=== PATIENT | male | born 1940 | race Caucasian/White ===

== ENCOUNTER 2023-07-19 12:18 | Inpatient (IN) | payer OTHER, SELFPAY ==
[2023-07-19] VITALS (17 sets, daily range): BP systolic 98–128; BP diastolic 52–91; PULSE 2–63; BMI 30.1
--- NOTE | 2023-07-19 08:21 | ED.GENMED ---
History of Present Illness
General
Chief Complaint: Breathing Problem
Source: patient
Exam Limitations: none
Time Seen by Provider: 07/19/23 08:12
Travel History
Have you had any contact with someone who has COVID-19?: No
Do you have any symptoms of coronavirus? Fever > 100 degrees, chills, cough, shortness of breath, sore throat, loss of taste or smell, muscle aches, or headache?: No
History of Present Illness
History of Present Illness:
83-year-old male with history of CHF, pacer on Eliquis and history of COPD presents with progressively worsening shortness of breath over the past week. 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 He is on Atrovent at home. He denies
significant leg swelling. No missed doses of Eliquis. No significant chest pain. Breathing seems to be worse laying down. He notes a cough as well but no fever
Past History
Past History
ED Past Medical History: Arrthythmia (Paroxysmal Atrial fibrillation), CHF, CVA, HTN, Hypercholesterolemia and Other (Kidney stones)
ED Past Surgical History: Cardiac (Cardiac Ablation X 2, Cardioversion), Tonsilectomy and Urological
Social History
Tobacco: Former smoker (quit )
Alcohol: None
Drug: None
Personal:
Living: with family
Phy Exam
Physical Exam
Physical Exam:
General: Well-developed male with increased work of breathing
HEENT: Normocephalic atraumatic neck is supple
Heart: Regular rate and rhythm no audible murmurs
Lungs: Slightly diminished with expiratory wheeze.
Extremities: No cyanosis or edema
Skin: Warm no rash or lesions
Scores
Heart Failure Risk
Heart Failure Risk Score: Not Applicable
Course
Orders/Labs/Results
Orders:
Orders
07/19/23 08:00
Electrocardiogram (*1) Urgent
Reason for Study: Shortness of Breath
EKG- Treatment ONCE
07/19/23 08:18
CR Chest Portable - 1 View Urgent
Comment:
Reason For Exam: sob
Reason Study Needs to be Portable: Patient Unstable
07/19/23 08:20
Ipratropium/Albuterol Sulfate [Duoneb] 3 ml .ROUTE .STK-MED ONE
Ipratropium/Albuterol Sulfate [Duoneb] 3 ml INH R NOW ONE
07/19/23 08:34
Complete Blood Count/With Diff Urgent
Comprehensive Metabolic Panel Urgent
NT-proBNP Urgent
Troponin I Urgent
07/19/23 08:46
COVID-19 Antigen Urgent
Source: Nasal Swab
Influenza A+B Rapid Molecular Urgent
MICHELET Source: Nasal Swab
Specimen Description:
07/19/23 11:13
CefTRIAXone [Rocephin] 1,000 mg IV NOW STA
07/19/23 12:00
Azithromycin 500 mg/250 ml [Zithromax Infusion] 500 mg in 250 ml IV Q24H
Abnormal Lab Results
07/19/23
08:34
RBC 3.09 L 10^6/uL
(4.70-6.10)
Hgb 10.0 L g/dL
(13.0-18.0)
Hct 30.5 L %
(39.0-52.0)
MCV 98.7 H fL
(80.0-94.0)
MCH 32.4 H pg
(27.0-31.0)
MCHC 32.8 L g/dL
(33.0-37.0)
Abs Immat Gran (auto) 0.1 H 10^3/uL
(0-0.05)
Absolute Neuts (auto) 7.4 H 10^3/uL
(1.4-6.5)
Absolute Lymphs (auto) 0.4 L 10^3/uL
(1.2-3.4)
Absolute Monos (auto) 1.3 H 10^3/uL
(0.1-0.6)
Neutrophils % 80.5 H %
(42.2-75.2)
Lymphocytes % 4.7 L %
(20.5-51.1)
Monocytes % 14.1 H %
(1.7-9.3)
BUN 29 H mg/dl
(9-20)
Creatinine 1.8 H mg/dL
(0.7-1.3)
Glucose 137 H mg/dl
(70-99)
Calcium 8.1 L mg/dl
(8.4-10.2)
AST 67 H U/L
(17-59)
Total Protein 5.5 L g/dl
(6.3-8.2)
Albumin 3.1 L g/dl
(3.5-5.0)
07/19/23 08:34
07/19/23 08:34
Vital Signs
Initial and Last Documented VS:
Initial Vital Signs
Temp Pulse Resp BP Pulse Ox
99.5 F 72 20 101/57 95
07/19/23 07:56 07/19/23 07:56 07/19/23 07:56 07/19/23 07:56 07/19/23 07:56
Last Documented Vital Signs
Temp Pulse Resp BP Pulse Ox
99.5 F 64 29 103/55 99
07/19/23 07:56 07/19/23 08:30 07/19/23 08:30 07/19/23 08:19 07/19/23 09:54
MDM/Problems Addressed
Differential Diagnosis Includes:
Increased respiratory effort. Consider acute on chronic COPD versus pneumonia versus heart failure. Unlikely to be PE in the setting of consistent Eliquis use. Portable chest x-ray DuoNeb ordered will be started on oxygen. May consider BiPAP if
no improvement
*Critical Care Note
Total Time (30-74mins, 75-104mins- exclusive of procedures): Not Applicable
Update Note
Update Note:
Patient reexamined multiple times still with increased respiratory effort after nebulizer. Respiratory therapy consulted for BiPAP initiation. Chest x-ray reviewed and demonstrates pneumonitis versus atypical edema. BNP is 4060.
ED Attending Note
-
Portions of this chart may have been created with voice recognition software.� Occasional wrong word or��sound alike� substitutions may have occurred due to the inherent limitations of voice recognition software.
Discharge Plan
Departure
Patient Disposition: Admit
Date of Disposition: 07/19/23
Time of Disposition: 11:20
Admit to: Telemetry
Presentation/result/management discussed w/ accepting MD/DO: Hospitalist
Discharge Problem:
COPD exacerbation
Prescriptions:
No Action
lorazepam 0.5 MG tablet
0.5 mg PO Q6HPRN PRN (Reason: anxiety, sleep)
ascorbic acid (vitamin C) [Vitamin C] 500 MG tablet
500 mg PO DAILY Qty: 0
Eliquis 5 MG tablet
5 mg PO BID
cholecalciferol (vitamin D3) 1,000 UNITS tablet
1,000 units PO DAILY
terazosin 5 MG capsule
5 mg PO HS
simvastatin 20 MG tablet
20 mg PO QPM
Patient Comments:
02/14/22---cannot take atorvastin
albuterol sulfate 1 PUFF HFA aerosol inhaler
2 puff inhalation R Q4HPRN PRN (Reason: sob)
Refresh Optive Advanced (PF) 0.5-1-0.5 % Dropperette
1 drp BOTH EYES QID Qty: 0
Rocklatan 2.5 ML drops
1 drp BOTH EYES HS
guaifenesin [Mucus Relief ER] 600 mg Tablet Extended Release 12hr
600 mg PO Q12 Qty: 1 0RF
Centrum Silver Men 300-600-300 mcg Tablet
1 tab PO DAILY
psyllium Packet
17 packet PO DAILY
[place] Saline 0.65 % Aerosol,[place]
2 spray INTRANASAL Q4H PRN (Reason: nasal dryness)
acetaminophen [Tylenol] 325 mg Tablet
325 mg PO Q4H PRN (Reason: mild pain)
Simbrinza 1-0.2 % Drops,Suspension
1 drp BOTH EYES BID
furosemide 40 mg tablet
40 mg PO DAILY
metoprolol succinate 50 mg Tablet Extended Release 24 Hr
75 mg PO BID Qty: 60 0RF
Referrals:
Kaitlynn Michelle CRNP [Family Provider] -
Interventions
Interventions:
*Risk Screen - Suicide Last Done: 07/19/23 08:23
*General Assessment Last Done: 07/19/23 08:43
*Neglect/Abuse Screening Last Done: 07/19/23 08:23
ED- Fall Risk Assessment Last Done: 07/19/23 08:23
*ED COVID-19 Vaccine History Last Done: 07/19/23 07:56
ED- Cardiac Assessment Last Done: 07/19/23 08:23
ED- Pulmonary Assessment Last Done: 07/19/23 08:23
[2023-07-19] MEDS: DUONEB 3 ML INH ×3 (08:26→20:00)
[2023-07-19 08:46] LABS: % Basophils 0.1 % (0-2); % Eosinophils 0.1 % (0-6); % Immature Granulocytes 0.5 % (0-0.5); % Lymphocytes 4.7 % (20.5-51.1); % Monocytes 14.1 % (1.7-9.3); % Neutrophils 80.5 % (42.2-75.2); Absolute Immature Granulocytes 0.1 10^3/uL (0-0.05); Absolute Lymphocytes 0.4 10^3/uL (1.2-3.4); Absolute Monocytes 1.3 10^3/uL (0.1-0.6); Absolute Neutrophils 7.4 10^3/uL (1.4-6.5); Hematocrit 30.5 % (39.0-52.0); Mean Corp Hgb Conc. 32.8 g/dL (33.0-37.0); Mean Corpuscular Hgb 32.4 pg (27.0-31.0); Mean Corpuscular Volume 98.7 fL (80.0-94.0); Nucleated Red Blood Cells % 0 % (-); Platelet Count 180 10^3/uL (130-400); Red Blood Cell Count 3.09 10^6/uL (4.70-6.10); Red Cell Dist. Width 12.7 % (11.5-14.5); White Blood Cell Count 9.2 10^3/uL (4.8-10.8)
[2023-07-19 09:04] LABS: ALT (SGPT) 47 U/L (0-50); AST (SGOT) 67 U/L (17-59); Albumin 3.1 g/dl (3.5-5.0); Alkaline Phosphatase 114 U/L (38-126); Blood Urea Nitrogen 29 mg/dl (9-20); Calcium 8.1 mg/dl (8.4-10.2); Carbon Dioxide 27 mmol/L (22-30); Chloride 103 mmol/L (98-107); Estimated Creatinine Clearance 40 ml/min; Glucose 137 mg/dl (70-99); Potassium 3.7 mmol/L (3.5-5.1); Sodium 136 mmol/L (135-145); Total Bilirubin 1.1 mg/dl (0.2-1.3); Total Protein 5.5 g/dl (6.3-8.2); eGFR 37.35
[2023-07-19 09:08] LABS: NT-proBNP 4060 pg/ml; Troponin I 0.014 ng/ml
[2023-07-19 09:14] LABS: COVID-19 Antigen Negative (Negative)
--- NOTE | 2023-07-19 11:40 | HPS.HSE ---
Family Physician
-
Family Physician: JUDY Echeverria
Chief Complaint
-
cough, SONG
History of Present Illness
HPI: 83-year-old male with history of CHF, pacer, A fib on Eliquis, COPD presented with progressively worsening shortness of breath over the past week.�SOB worse with exertion. This is associated with productive cough.
He denies to significant leg swelling, CP, abd pain etc.
Medical History
Past Medical History
Past Medical History: Reports Arrhythmia (Paroxysmal A. 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
insomnia)
Past Surgical History: Reports Cardiac (Multiple cardiac ablations paroxysmal A. fib, cardioversion) and Tonsilectomy
Social History
Tobacco: Former Smoker (Quit 2018 smoking a pipe)
Alcohol: Former (Quit 8 years ago)
Drug: None
Personal: Single
Living: With Family ( Laura)
Family History
Family History: Not pertinent
Allergies / Home Medications
Allergies reflects when Allergies were last updated in [facility].
Home Medications with original date entered in [facility]
Allergy/Medication List:
Allergies
Allergy/AdvReac Type Severity Reaction Status Date / Time
amiodarone Allergy Severe Shortness Verified 04/04/22 07:45
of Breath
codeine Allergy Severe nausea/vomi Verified 03/04/22 09:13
ting
fluvastatin Allergy Severe dizzy/SOB Verified 03/04/22 09:13
atorvastatin Allergy dizzy/SOB Verified 03/04/22 09:13
Home Medications
lorazepam 0.5 mg tablet 0.5 mg PO Q6HPRN PRN anxiety, sleep 11/28/14
ascorbic acid (vitamin C) 500 mg tablet (Vitamin C) 500 mg PO DAILY Supplement ##0 06/30/20
apixaban 5 mg tablet (Eliquis) 5 mg PO BID Blood clot prevention/tx 01/23/21
cholecalciferol (vitamin D3) 25 mcg (1,000 unit) tablet 1,000 units PO DAILY Supplement 02/28/21
albuterol sulfate 90 mcg/actuation aerosol inhaler 2 puff inhalation R Q4HPRN PRN sob 05/02/21
simvastatin 20 mg tablet 20 mg PO QPM High cholesterol 05/02/21
carboxymethyl 0.5 %-glycerin 1 %-polysorb 80 0.5 %-PF eye dropperette (Refresh Optive Advanced (PF)) 1 drp BOTH EYES 5/D Eye condition ##0 10/22/21
rcomqaeu-fp-eoxmo 300 mcg-K 60 mcg-lycop 600 mcg-lutein 300 mcg tablet (Centrum Silver Men) 1 tab PO DAILY Supplement 02/03/22
brinzolamide 1 %-brimonidine 0.2 % eye drops,suspension (Simbrinza) 1 drp RIGHT EYE BID Eye condition 02/14/22
furosemide 40 mg tablet 40 mg PO DAILY Fluid retention/Swelling 02/14/22
amlodipine 10 mg tablet (Norvasc) 10 mg PO DAILY 07/19/23
guaifenesin 600 mg tablet, extended release 12 hr (Mucus Relief ER) 600 mg PO DAILY 07/19/23
lisinopril 30 mg tablet 30 mg PO DAILY 07/19/23
methazolamide 50 mg tablet 50 mg PO BID 07/19/23
metoprolol succinate 50 mg tablet,extended release 24 hr 50 mg PO BID 07/19/23
netarsudil 0.02 % eye drops (Rhopressa) 1 drp BOTH EYES QPM 07/19/23
Review of Systems
-
Respiratory: Reports See HPI, Cough and Trouble Breathing
Physical Exam
Vital Signs
Vital Signs
Temp Pulse Resp BP Pulse Ox
37.5 C 64 29 103/55 99
07/19/23 07:56 07/19/23 08:30 07/19/23 08:30 07/19/23 08:19 07/19/23 09:54
Physical Exam
General: Well Developed, Well Nourished and Conversant
HEENT: NormoCephalic, Moist mucous membranes, Atraumatic and Oxygen (BIPAP)
Respiratory: Clear and Accessory Resp Muscle Use; No Wheezes
Cardiac: S1/S2 and Regular Rhythm; No Murmur or Rub
GI: Soft, Non Tender, Non Distended and Normal Bowel Sounds; No Organomegaly
Rectal: Deferred by Provider
Musculoskeletal: No Clubbing, No Cyanosis and No Edema
Skin: No Rash
Neuro: Awake
Psych: Calm and Intact Judgment/Insight
Laboratory Results
-
07/19/23 08:34
07/19/23 08:34
Laboratory Results
Total Bilirubin 1.1 mg/dl (0.2-1.3) 07/19/23 08:34
AST 67 U/L (17-59) H 07/19/23 08:34
ALT 47 U/L (0-50) 07/19/23 08:34
Alkaline Phosphatase 114 U/L (38-126) 07/19/23 08:34
Troponin I 0.014 ng/ml 07/19/23 08:34
Data Reviewed
-
Diagnostic Radiology: Image Personally Visualized and interpreted and Report Reviewed by me
Lab Data: Labs Reviewed by me
Impression/Plan
-
HPI: 83-year-old male with history of CHF, pacer, A fib on Eliquis, COPD presented with progressively worsening shortness of breath over the past week.�SOB worse with exertion. This is associated with productive cough.
He denies to significant leg swelling, CP, abd pain etc.
CXR:
Some mild widespread bilateral interstitial opacities as well as possible small superimposed patchy right upper lobe alveolar opacity. Some differential diagnostic possibilities include pneumonitis or atypical edema.
A/P:
# SOB/SONG and productive cough, ddx include acute CHF vs CAP, see below
# Acute hypoxic resp failure
Placed on BIPAP, cont and wean as tolerated
IV PPI for gastric protection
Would not resume [employer] Ativan while on BIPAP
Admit to IMU for acute hypoxic resp failure on BIPAP
# Acute on chronic diastolic heart failure
BNP 4060
CXR report as above
weight 112 kg from baseline 106, monitor daily weight
cont Lasix, use 40 mg IV during hospital stay
Check updated echo
Card CS
# CRISTELA, possible cardiorenal syndrome
SCr 1.8 from baseline 1.3
Monitor SCr with IV lasix
# Possible CAP
COVID/Flu are negative
s/p ceftriaxone/azithromycin in ED, cont ceftriaxone/azithromycin
check MRSA screen, sputum Cx
cont DuoNeb
# Paroxysmal atrial fibrillation and atrial flutter s/p pulmonary vein isolation ablation x2 in 2018, Maze 01/2021.
# Status post biventricular permanent pacemaker 03/04/2022.
Cont [employer] Eliquis
# Hypertension.
cont [employer] Toprol
Hold Lisinopril, Norvasc
# Hyperlipidemia.
# Gastroesophageal reflux disease.
IV PPI
DVT ppx: [employer] Eliquis
FC
[2023-07-19] MEDS: ZITHROMAX INFUSION 250 IV (12:06)
[2023-07-19] MEDS: ROCEPHIN 1000 MG IV (12:08)
[2023-07-19] MEDS: STERILE WATER FOR INJECTION 10 ML IV (12:08)
--- NOTE | 2023-07-19 14:09 | CON.PUL ---
Consultation
Consultation Request
Date/Time Consultation Requested: 07/19/2023-2:30 PM
Date/Time Consultation Performed: 07/19/2023-2:30 PM
Requesting Provider: Hospitalist
Performing Provider: Dr. Sandoval
Reason for Consultation: COPD
Medical History
-
Chief Complaint: Shortness of breath
History of Present Illness:
83-year-old male with a history of underlying COPD, CAD, CHF, atrial fibrillation on Eliquis presented with increasing shortness of breath and pulmonary consulted for shortness of breath 07/19/2023. He was just seen in the pulmonary office where he
was stable. He developed increasing shortness of breath, increasing wheezing, chest congestion with thick yellow/green sputum production. He denies any current chest pain, pleurisy, abdominal pain, nausea, vomiting, leg swelling or weakness.
Past Medical History
Past Medical History: None (Hypertension. PAF/multiple ablations/cardioversions. CHF. GERD. Chronic kidney disease stage IIIb. Anxiety. 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 Renal calculi. Former smoker quit 2019. COPD. Tonsillectomy.)
Social History
Tobacco: Former Smoker (Quit 2019 smoking a pipe)
Alcohol: Former (Quit 8 years ago)
Drug: None
Personal:
Living: With Family
Occupational Exposures: No known asbestos exposure
Environmental Exposures: No known tuberculosis exposure
Family History
Family History: Reviewed & Not Pertinent and Other (Father-TIA. Mother-aortic stenosis)
Allergies / Home Medications
Allergies
Allergy/AdvReac Type Severity Reaction Status Date / Time
amiodarone Allergy Severe Shortness Verified 04/04/22 07:45
of Breath
codeine Allergy Severe nausea/vomi Verified 03/04/22 09:13
ting
fluvastatin Allergy Severe dizzy/SOB Verified 03/04/22 09:13
atorvastatin Allergy dizzy/SOB Verified 03/04/22 09:13
Home Medications
Medication Instructions Recorded Confirmed Last Taken Type
lorazepam 0.5 mg tablet 0.5 mg PO Q6HPRN PRN anxiety, sleep 11/28/14 07/19/23 04/03/22 19:30 History
ascorbic acid (vitamin C) 500 mg 500 mg PO DAILY Supplement ##0 06/30/20 07/19/23 07/19/23 History
tablet (Vitamin C)
apixaban 5 mg tablet (Eliquis) 5 mg PO BID Blood clot 01/23/21 07/19/23 07/19/23 History
prevention/tx
cholecalciferol (vitamin D3) 25 1,000 units PO DAILY Supplement 02/28/21 07/19/23 07/19/23 History
mcg (1,000 unit) tablet
albuterol sulfate 90 mcg/actuation 2 puff inhalation R Q4HPRN PRN sob 05/02/21 07/19/23 04/03/22 12:00 History
aerosol inhaler
simvastatin 20 mg tablet 20 mg PO QPM High cholesterol 05/02/21 07/19/23 07/18/23 History
carboxymethyl 0.5 %-glycerin 1 1 drp BOTH EYES 5/D Eye condition 10/22/21 07/19/23 07/19/23 History
%-polysorb 80 0.5 %-PF eye ##0
dropperette (Refresh Optive
Advanced (PF))
hjwtutoj-zu-cxdzn 300 mcg-K 60 1 tab PO DAILY Supplement 02/03/22 07/19/23 07/19/23 History
mcg-lycop 600 mcg-lutein 300 mcg
tablet (Centrum Silver Men)
brinzolamide 1 %-brimonidine 0.2 % 1 drp RIGHT EYE BID Eye condition 02/14/22 07/19/23 07/19/23 History
eye drops,suspension (Simbrinza)
furosemide 40 mg tablet 40 mg PO DAILY Fluid 02/14/22 07/19/23 07/19/23 History
retention/Swelling
amlodipine 10 mg tablet (Norvasc) 10 mg PO DAILY Blood Pressure 07/19/23 07/19/23 07/19/23 History
guaifenesin 600 mg tablet, 600 mg PO DAILY Congestion 07/19/23 07/19/23 07/19/23 History
extended release 12 hr (Mucus
Relief ER)
lisinopril 30 mg tablet 30 mg PO DAILY Blood Pressure 07/19/23 07/19/23 07/19/23 History
methazolamide 50 mg tablet 50 mg PO BID Eye Condition 07/19/23 07/19/23 07/19/23 History
metoprolol succinate 50 mg 50 mg PO BID Blood Pressure 07/19/23 07/19/23 07/19/23 History
tablet,extended release 24 hr
netarsudil 0.02 % eye drops 1 drp BOTH EYES QPM Eye Condition 07/19/23 07/19/23 07/18/23 History
(Rhopressa)
Review of Systems
-
Unable to Obtain full review of systems at this time due to: Other (Per HPI)
Vitals / Labs / Diagnostic Testing
Vital Signs
Temp Pulse Resp BP Pulse Ox
99.5 F 74 32 119/68 95
07/19/23 07:56 07/19/23 12:45 07/19/23 12:45 07/19/23 12:00 07/19/23 12:30
Lab Data
07/19/23 08:34
07/19/23 08:34
Microbiology
07/19/23 08:46 Nasal Swab Influenza Types A & B (XIMENA) - Final
Negative for Influenza A & B, NAAT
Negative results must be combined with clinical observations
and patient history.
Nucleic Acid Amplification test (NAAT)performed on the
[employer] platform.
Diagnostic Testing:
Physical Exam
-
Exam:
Well-nourished and well-developed in no apparent distress
HEENT-atraumatic, normocephalic
Neck-supple, no JVD, no bruit
Heart-regular rate and rhythm-no murmurs, rubs or gallops
Chest with diminished breath sounds, prolonged expiratory time, expiratory wheezes, rhonchi and rare crackles at the bases
Abdomen-soft, nontender, nondistended, no hepatosplenomegaly
Extremities-no cyanosis, clubbing, lower extremity edema
Integument-intact, no rashes, lesions or ecchymosis
Neurology-alert and oriented, nonfocal motor and sensory exam
Assessment
-
83-year-old male with a history of underlying COPD, CAD, CHF, atrial fibrillation on Eliquis presented with increasing shortness of breath and pulmonary consulted for shortness of breath 07/19/2023.
Assessment
Shortness of breath
Bilateral interstitial opacifications
Acute on top of chronic diastolic CHF-BNP 4060
COPD with acute exacerbation-significant wheezing on exam
CRISTELA
PAF status post ablation, maze
[id number] 10.0
Hyperglycemia-blood sugar 137
Hypoalbuminemia
Conditions present prior to admission:
Hypertension.
PAF/multiple ablations-2017, MAZE 2020/cardioversions.
Chronic anticoagulation
CHF.
GERD.
Chronic kidney disease stage IIIb.
Anxiety.
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 June
Renal calculi.
Former smoker quit 2018.
COPD.
Tonsillectomy. Hemorrhoidectomy. Biventricular pacemaker implant. AV pepe ablation 03/2022. Laser lithotripsy and stenting 10/2021. Cataract extraction.
Plan
Patient admitted to IMU with impending respiratory failure
Supplemental oxygen as needed
BiPAP
Noninvasive ventilation if needed
Intubated mechanically ventilated if needed
Nebulizers as needed
Add Decadron
Add mucolytic's
Mucus clearing devices
Aspiration precautions
Incentive spirometry
Diuresis as tolerated
Monitor renal function, electrolytes, intake/output, lower extremity edema and weight
Replace electrolytes as needed
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
Cardiology evaluation
Check cultures
Check sputum culture
Empiric antibiotics
Follow radiographically
Consider CT chest
Monitor renal function
Consider nephrology evaluation if renal function worsens
DVT prophylaxis
Nutrition
Early mobilization
Dr. Sandoval reviewed with at the bedside
Patient was last seen by Dr. June 07/09/2023-interstitial lung disease
Diagnostic data:
Chest x-ray 03/04/2022-no pneumothorax, no acute mediastinal abnormalities, mild stable pleural-parenchymal scarring, lungs otherwise clear
Chest x-ray 07/19/2023-some widespread bilateral interstitial opacifications as well as possible small superimposed patchy right upper lobe airspace disease
Echocardiogram 05/25/2021-EF 50%, stage II diastolic dysfunction, PA systolic 30-35
Echocardiogram 02/13/2023-EF 50-55%, moderately dilated left atrium, no valvular disease, no change from 2021
CT chest 05/24/2021-increased interstitial markings with groundglass opacifications
CT chest 08/17/2021-resolution of bilateral interstitial infiltrates, stable lung nodules for several years
PFT 11/22/2022-FEV1 2.8-78%, FVC 6.8-82%, TLC 82%, RV 75%, DLCO 44%, DLCO/VA 50%
PFT 07/09/2023-FEV1 2.6-72%, FVC 4-82%, TLC 91%, RV 89%, DLCO 46%, DLCO/VA 64%
Immunoglobulin levels 05/25/2021-normal with exception of mildly decreased IgG-607
Data Reviewed
-
PFT: Report reviewed by me
EKG: Report reviewed by me
Radiology: Report reviewed by me
CT Scan: Report reviewed by me
Medical Tests (Nuc Med, Echo etc): Report reviewed by me
Labs: Labs reviewed by me
Old Records: Reviewed
Total Time Spent with Patient (in minutes): 50
--- NOTE | 2023-07-19 14:55 | CON.CAR ---
Consultation
Consultation Request
Date/Time Consultation Requested: 07/19/23, 1pm
Date/Time Consultation Performed: 07/19/21, 2pm
Requesting Provider: Jorden
Performing Provider: Sylvester
Reason for Consultation: SOB
Medical History
-
Chief Complaint: SOB, cough
History of Present Illness:
83 yo male with PMH of persistent atrial fibrillation and flutter, s/p multiple ablations, with recurrence, then BiV PPM and AVN ablation 03/2022, chronic HFPEF (EF 50%), HTN, CKD3b, ILD is admitted with SOB, cough, hypoxic respiratory failure. He
reports progressed SOB/SONG and productive cough. No chest pain, edema, weight gain.
Past Medical History
Past Medical History: Arrhythmias (persistent atrial fibrillation), CHF (chronic HFPEF), HTN and Renal Failure (CKD3b)
Past Surgical History: Cardiac (BiV PPM 02/2022, then AV pepe ablation 03/2022)
Social History
Tobacco: Former Smoker
Personal:
Family History
Family History: Early CAD (none)
Allergies / Home Medications
Allergy/AdvReac Type Severity Reaction Status Date / Time
amiodarone Allergy Severe Shortness Verified 04/04/22 07:45
of Breath
codeine Allergy Severe nausea/vomi Verified 03/04/22 09:13
ting
fluvastatin Allergy Severe dizzy/SOB Verified 03/04/22 09:13
atorvastatin Allergy dizzy/SOB Verified 03/04/22 09:13
Medication Instructions Recorded Confirmed Type
lorazepam 0.5 mg tablet 0.5 mg PO Q6HPRN PRN anxiety, sleep 11/28/14 07/19/23 History
ascorbic acid (vitamin C) 500 mg 500 mg PO DAILY Supplement ##0 06/30/20 07/19/23 History
tablet (Vitamin C)
apixaban 5 mg tablet (Eliquis) 5 mg PO BID Blood clot 01/23/21 07/19/23 History
prevention/tx
cholecalciferol (vitamin D3) 25 1,000 units PO DAILY Supplement 02/28/21 07/19/23 History
mcg (1,000 unit) tablet
albuterol sulfate 90 mcg/actuation 2 puff inhalation R Q4HPRN PRN sob 05/02/21 07/19/23 History
aerosol inhaler
simvastatin 20 mg tablet 20 mg PO QPM High cholesterol 05/02/21 07/19/23 History
carboxymethyl 0.5 %-glycerin 1 1 drp BOTH EYES 5/D Eye condition 10/22/21 07/19/23 History
%-polysorb 80 0.5 %-PF eye ##0
dropperette (Refresh Optive
Advanced (PF))
ukpbkwiz-cc-drkfe 300 mcg-K 60 1 tab PO DAILY Supplement 02/03/22 07/19/23 History
mcg-lycop 600 mcg-lutein 300 mcg
tablet (Centrum Silver Men)
brinzolamide 1 %-brimonidine 0.2 % 1 drp RIGHT EYE BID Eye condition 02/14/22 07/19/23 History
eye drops,suspension (Simbrinza)
furosemide 40 mg tablet 40 mg PO DAILY Fluid 02/14/22 07/19/23 History
retention/Swelling
amlodipine 10 mg tablet (Norvasc) 10 mg PO DAILY Blood Pressure 07/19/23 07/19/23 History
guaifenesin 600 mg tablet, 600 mg PO DAILY Congestion 07/19/23 07/19/23 History
extended release 12 hr (Mucus
Relief ER)
lisinopril 30 mg tablet 30 mg PO DAILY Blood Pressure 07/19/23 07/19/23 History
methazolamide 50 mg tablet 50 mg PO BID Eye Condition 07/19/23 07/19/23 History
metoprolol succinate 50 mg 50 mg PO BID Blood Pressure 07/19/23 07/19/23 History
tablet,extended release 24 hr
netarsudil 0.02 % eye drops 1 drp BOTH EYES QPM Eye Condition 07/19/23 07/19/23 History
(Rhopressa)
Review of Systems
-
History Source: Patient and Family
All other systems: Negative unless noted
Constitutional: Fatigue
Respiratory: Cough and Trouble Breathing
Physical Exam
Vital Signs
Temp Pulse Resp BP Pulse Ox
99.5 F 74 20 120/91 89
07/19/23 07:56 07/19/23 14:15 07/19/23 14:15 07/19/23 14:00 07/19/23 14:00
Lab Results
07/19/23 08:34
07/19/23 08:34
Troponin I 0.014 ng/ml 07/19/23 08:34
Oow-V-Bagbrdizinu Pept 4060 pg/ml 07/19/23 08:34
Physical Exam
General: Well Developed, Well Nourished and Respiratory Distress
HEENT: Normocephalic and Anicteric
Respiratory: Crackles and Accessory Resp Muscle Use
Cardiac: S1/S2 (normal), Regular Rhythm, Murmur (none), Peripheral Edema (none) and JVD (none)
GI: Soft and Non Tender
Musculoskeletal: No Clubbing, No Cyanosis and No Edema
Skin: Warm and Dry
Neuro: AO x 3
Psych: Calm
Impression / Plan
-
83 yo male with PMH of persistent atrial fibrillation and flutter, s/p multiple ablations, with recurrence, then BiV PPM and AVN ablation 03/2022, chronic HFPEF (EF 50%), HTN, CKD3b, ILD is admitted with SOB, cough, hypoxic respiratory failure.
# Acute hypoxic respiratory failure: severe
-being evaluated for PNA by hospitalist, received Abx, on BiPAP
-pulmonology also consulted
# Possible component of acute on chronic HFPEF
-however, weight is stable, and no edema
-given IV lasix: will need to trend Cr closely with CKD3b
# Persistent A fib s/p BiV PPM and AV pepe ablation
-continue metoprolol
-if Cr remains above 1.5, will reduce eliquis to 2.5mg bid
# CRISTELA on CKD3b
-hold lisinopril
# HTN
-hold lisinopril given CRISTELA; continue metoprolol and amlodipine
Data Reviewed
-
EKG: Tracing Personally Visualized and interpreted (A fib, V paced)
Labs: Labs Reviewed by me
Old Records: Reviewed
--- NOTE | 2023-07-19 15:30 | PTCARENOTE ---
Patient received from the ER. HUEY GODINEZ. Currently on BiPAP on 4L. During admission questions, was noted patient has had multiple diarrhea episode and placed on Enhanced Precautions until stool sample can be obtained and tested. No fluids through
IV. Patients home med, Simvastatin, brought in as patient has allergies to Fluvastatin and Atorvastatin. Oriented to room. Call tello in reach.
[2023-07-19] MEDS: PROTONIX IV 40 MG IV (17:05)
[2023-07-19] MEDS: NSS (PRESERVATIVE FREE) 10 ML IV (17:05)
[2023-07-19] MEDS: DECADRON 6 MG IV (17:07)
[2023-07-19] MEDS: LASIX 40 MG IV (17:08)
[2023-07-19] MEDS: REFRESH EYE DROPS (PF) 1 DROPS BOTH EYES ×2 (17:09→22:49)
[2023-07-19] MEDS: STERILE WATER FOR INJECTION IV (17:41)
[2023-07-19] MEDS: SIMBRINZA 1%-0.2% OPHTH SUSP 1 DROP RIGHT EYE (20:46)
[2023-07-19] MEDS: ELIQUIS 5 MG PO (20:46)
[2023-07-19] MEDS: MUCINEX 1200 MG PO (20:46)
[2023-07-19] MEDS: NON-FORMULARY ITEM 1 UNIT PO (20:46)
[2023-07-19] MEDS: TOPROL XL 50 MG PO (20:46)
[2023-07-20] VITALS (13 sets, daily range): BP systolic 105–139; BP diastolic 48–72; PULSE 2–77; O2SAT 97; BMI 29.3
[2023-07-20 03:42] LABS: Hematocrit 28.3 % (39.0-52.0); Hemoglobin 9.5 g/dL (13.0-18.0); Mean Corp Hgb Conc. 33.6 g/dL (33.0-37.0); Mean Corpuscular Volume 95.3 fL (80.0-94.0); Mean Platelet Volume 9.5 fL (7.4-10.4); Platelet Count 168 10^3/uL (130-400); Red Blood Cell Count 2.97 10^6/uL (4.70-6.10); Red Cell Dist. Width 12.6 % (11.5-14.5)
[2023-07-20 04:05] LABS: Blood Urea Nitrogen 36 mg/dl (9-20); Calcium 8.4 mg/dl (8.4-10.2); Carbon Dioxide 25 mmol/L (22-30); Chloride 104 mmol/L (98-107); Estimated Creatinine Clearance 42 ml/min; Glucose 167 mg/dl (70-99); Magnesium 2.6 mg/dl (1.6-2.3); Sodium 139 mmol/L (135-145)
--- NOTE | 2023-07-20 04:47 | PTCARENOTE ---
Patient due for 0600 iv decadron. 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
left. call worker provider made aware and gave permission to hold 0600 am dose and let dayshift team review in am.
[2023-07-20] MEDS: DECADRON IV (05:00)
--- NOTE | 2023-07-20 05:18 | PTCARENOTE ---
Patient weaned from BIPAP to 6 liters midflow. No loose stools overnight. Remains on enhanced precautions for report of 3 + loose stools in a day prior to admission per protocol.
[2023-07-20] MEDS: DUONEB 3 ML INH ×4 (07:31→18:25)
[2023-07-20] MEDS: TOPROL XL PO ×2 (08:13→19:34)
[2023-07-20] MEDS: ELIQUIS 5 MG PO (08:13)
[2023-07-20] MEDS: REFRESH EYE DROPS (PF) 1 DROPS BOTH EYES ×5 (08:14→22:05)
[2023-07-20] MEDS: MUCINEX 1200 MG PO ×2 (08:15→19:24)
[2023-07-20] MEDS: LASIX 40 MG IV (08:16)
[2023-07-20] MEDS: NSS (PRESERVATIVE FREE) 10 ML IV (08:16)
[2023-07-20] MEDS: PROTONIX IV IV ×2 (08:16→09:44)
[2023-07-20] MEDS: SIMBRINZA 1%-0.2% OPHTH SUSP 1 DROP RIGHT EYE ×2 (08:17→19:26)
--- NOTE | 2023-07-20 09:52 | W.PN.HOSP.TC ---
Today's Communication/Plan
-
see A/P
Assessment / Plan
Assessment / Plan
HPI: 83-year-old male with history of CHF, pacer, A fib on Eliquis, COPD presented with progressively worsening shortness of breath over the past week.�SOB worse with exertion. This is associated with productive cough.�
He denies to significant leg swelling, CP, abd pain etc.
CXR:
Some mild widespread bilateral interstitial opacities as well as possible small superimposed patchy right upper lobe alveolar opacity. Some differential diagnostic possibilities include pneumonitis or atypical edema.
A/P:
# SOB/SONG and productive cough, ddx include acute CHF vs CAP, see below
# Acute hypoxic resp failure
BIPAP -> 6L NC, wean as tolerated
# Acute on chronic diastolic heart failure
BNP 4060
CXR report as above
weight 112 kg from baseline 106, monitor daily weight
cont Lasix 40 mg IV daily during hospital stay
Check update echo
Card on board
# CRISTELA, possibly cardiorenal syndrome
SCr 1.8 -> 1.7, from baseline 1.3
Monitor SCr with IV lasix
# Possible CAP
COVID/Flu are negative
s/p ceftriaxone/azithromycin in ED, cont ceftriaxone/azithromycin
check MRSA screen, sputum Cx
cont DuoNeb�
Pt refused steroid, will DC Decadron with absence of wheezing
# Paroxysmal atrial fibrillation and atrial flutter s/p pulmonary vein isolation ablation x2 in 2018, Maze 01/2021.
# Status post biventricular permanent pacemaker 03/04/2022.
Cont RETORT SETTER Eliquis
# Hypertension.
Currently hypotensive, Hold RETORT SETTER Lisinopril and Norvasc
Cont RETORT SETTER Toprol with holding parameter
# Hyperlipidemia.
# Gastroesophageal reflux disease.
IV PPI
DVT ppx: RETORT SETTER Eliquis
FC
DW RN
Anticipated Discharge: 24 - 48 hours
Subjective/Interval History
-
Date of Service: July 20, 2023
Objective Data
-
Labs:
Laboratory Results
07/20/23
03:32
WBC 6.0
Hgb 9.5 L
Hct 28.3 L
Plt Count 168
Sodium 139
Potassium 4.0
Chloride 104
Carbon Dioxide 25
BUN 36 H
Creatinine 1.7 H
Glucose 167 H
Calcium 8.4
Vital Signs:
Vital Signs
Temp Pulse Resp BP Pulse Ox
36.4 C 89 20 109/67 96
07/20/23 03:10 07/20/23 07:40 07/20/23 07:40 07/20/23 08:13 07/20/23 07:40
I&O
07/19/23 07/20/23 07/21/23
06:59 06:59 06:59
Output Total 350 / 350
Balance -350 / -350
Review of Systems
-
All other systems: Reviewed and negative
Physical Exam
-
General: Well Developed, Comfortable and Respiratory Distress
HEENT: Normocephalic, Atraumatic, Moist Mucous Membranes and Oxygen (5L NC)
Respiratory: Clear to Auscultation and Non Labored Respirations; Negative Wheezes or Accessory Resp Muscle Use
Cardiac: Regular Rhythm and S1/S2; Negative Murmur, Rub or Gallop
GI: Soft, Nontender, Nondistended and Normal Bowel Sounds; Negative Organomegaly
Rectal: Deferred by Provider
Musculoskeletal: No Clubbing, No Cyanosis and No Edema
Skin: Negative Rash
Neuro: Awake and Nonfocal/Grossly Intact
Psych: Calm and Intact Judgement/Insight
Data Reviewed
-
Labs: Labs Reviewed by me
--- NOTE | 2023-07-20 10:27 | PTCARENOTE ---
enhanced precautions removed as pt reports that one week ago was when he had 3 loose bms and bms have been formed since. last bm about 2 days ago per patient.
--- NOTE | 2023-07-20 10:40 | W.PN.CD ---
Today's Communication / Plan
-
continue IV lasix
echo in AM
Impression / Plan
-
83 yo male with PMH of persistent atrial fibrillation and flutter, s/p multiple ablations, with recurrence, then BiV PPM and AVN ablation 03/2022, chronic HFPEF (EF 50%), HTN, CKD3b, ILD is admitted with SOB, cough, hypoxic respiratory failure.
# Acute hypoxic respiratory failure: severe, improving
-being evaluated for PNA by hospitalist, received Abx
-pulmonology also consulted
# Likely component of acute on chronic HFPEF
-continue IV lasix, and trend Cr with CKD3b
-echo
# Persistent A fib s/p BiV PPM and AV pepe ablation
-continue metoprolol
-eliquis will be 2.5mg bid as long as Cr 1.5 or higher
# CRISTELA on CKD3b
-hold lisinopril
# HTN
-hold lisinopril given CRISTELA; continue metoprolol
Physical Exam
Vital Signs/Labs
Vital Signs
Temp Pulse Resp BP Pulse Ox
97.5 F 98 25 118/70 6
07/20/23 03:10 07/20/23 10:00 07/20/23 10:00 07/20/23 10:00 07/20/23 10:24
07/19/23 07/20/23 07/21/23
06:59 06:59 06:59
Actual Weight 109 kg
07/20/23 03:32
07/20/23 03:32
Magnesium 2.6 mg/dl (1.6-2.3) H 07/20/23 03:32
07/19/23
08:34
Lep-J-Mpcfinilpsk Pept 4060
LAB Results
07/19/23
08:34
Troponin I 0.014
Physical Exam
Constitutional: Comfortable
EENT: Moist mucous membranes
Cardiovascular: Rhythm & rate is regular, Pedal edema is absent, Systolic murmur absent and JVD present
Respiratory: Labored respirations and Crackles Present
GI: Soft and Distention absent
Neuro/Psych: AO x 3
Data Reviewed
-
Date of Service: July 20, 2023
EKG: Other (Tele: V paced)
Labs: Labs Reviewed by me
[2023-07-20] MEDS: STERILE WATER FOR INJECTION 10 ML IV (12:27)
[2023-07-20] MEDS: ROCEPHIN 1000 MG IV (12:28)
--- NOTE | 2023-07-20 12:37 | W.PN.PUL.V3 ---
Today's Communication / Plan
-
Wean oxygen
Antibiotics
Diuresis
Outpatient pulmonary follow-up
Assessment
-
83-year-old male with a history of underlying COPD, CAD, CHF, atrial fibrillation on Eliquis presented with increasing shortness of breath and pulmonary consulted for shortness of breath 07/19/2023.
Assessment
Shortness of breath
Bilateral interstitial opacifications
Acute on top of chronic diastolic CHF-BNP 4060
COPD with acute exacerbation-significant wheezing on exam-refused steroids-wheezing improved 24 hours later-possibly related to diuresis
CRISTELA
PAF status post ablation, maze
Fjepmf-ektbzapjhp-dqxwqmabvf 10.0
Hyperglycemia-blood sugar 137
Hypoalbuminemia
Conditions present prior to admission:
Hypertension.
PAF/multiple ablations-2017, MAZE 2020/cardioversions.
Chronic anticoagulation
CHF.
GERD.
Chronic kidney disease stage IIIb.
Anxiety.
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 June
Renal calculi.
Former smoker quit 2018.
COPD.
Tonsillectomy. Hemorrhoidectomy. Biventricular pacemaker implant. AV pepe ablation 03/2022. Laser lithotripsy and stenting 10/2021. Cataract extraction.
Plan
Respiratory status improved
BiPAP weaned to supplemental oxygen
Wean supplemental oxygen
Decadron for significant wheezing on admission-patient refused-wheezing now improved-possibly related to diuresis
Aspiration precautions
Mucolytic's
Mucus clearing devices
Incentive spirometry
Continue diuresis as tolerated
Follow renal function, electrolytes, intake/output, lower extremity edema and weight
Continue to replace electrolytes as needed
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
Cardiology evaluation ongoing-correspondence reviewed
Update echocardiogram
Cultures reviewed-unrevealing thus far
Check sputum culture-unable to produce
Empiric antibiotics-Rocephin and azithromycin
Follow radiographically
We will consider updated CT chest
Follow renal function-minimally improved
Consider nephrology evaluation if renal function worsens
DVT prophylaxis
Nutrition
Early mobilization
Dr. Sandoval reviewed with at the bedside on 07/19/2023
Patient was last seen by Dr. June 07/09/2023-interstitial lung disease-encourage follow-up
Diagnostic data:
Chest x-ray 03/04/2022-no pneumothorax, no acute mediastinal abnormalities, mild stable pleural-parenchymal scarring, lungs otherwise clear
Chest x-ray 07/19/2023-some widespread bilateral interstitial opacifications as well as possible small superimposed patchy right upper lobe airspace disease
Echocardiogram 05/25/2021-EF 50%, stage II diastolic dysfunction, PA systolic 30-35
Echocardiogram 02/13/2023-EF 50-55%, moderately dilated left atrium, no valvular disease, no change from 2021
CT chest 05/24/2021-increased interstitial markings with groundglass opacifications
CT chest 08/17/2021-resolution of bilateral interstitial infiltrates, stable lung nodules for several years
PFT 11/22/2022-FEV1 2.8-78%, FVC 6.8-82%, TLC 82%, RV 75%, DLCO 44%, DLCO/VA 50%
PFT 07/09/2023-FEV1 2.6-72%, FVC 4-82%, TLC 91%, RV 89%, DLCO 46%, DLCO/VA 64%
Immunoglobulin levels 05/25/2021-normal with exception of mildly decreased IgG-607
Subjective Data
-
Date of Service:
Date of Service: July 20, 2023
Chief Complaint: Pulmonary Follow Up and Dyspnea Follow Up
Subjective:
Feels a little better, less short of breath, less wheezy, no chest pain or abdominal pain
Review of Systems
General: Other (Per HPI)
Objective Data
Data Reviewed
Vital Signs / I&O:
Vital Signs
Temp Pulse Resp BP Pulse Ox
97.5 F 87 20 118/70 96
07/20/23 07:35 07/20/23 11:33 07/20/23 11:33 07/20/23 10:00 07/20/23 11:33
Intake and Output
07/19/23 07/20/23 07/21/23
06:59 06:59 06:59
Output Total 350 / 350 350 / 350
Balance -350 / -350 -350 / -350
SaO2: 96
Nasal Cannula flow liters per minute: 6
Physical Exam
General: Respiratory Distress (n) and Comfortable
HEENT: Normocephalic, Anicteric and Moist Mucous Membranes
Cardiovascular: Regular Rhythm
Respiratory: Wheeze (Improved-minimal now), Crackles (Basilar), Rhonchi (n), Non-Labored Respirations, Accessory Resp Muscle Use (n) and Stridor
GI: Soft, Non Distended and Non Tender
Neurology: Awake, Alert, No Motor Deficits and Other ( decreased hearing)
Skin: Warm, Good Color, Cyanosis (n) and Jaundice (n)
Labs/Micro/Reports
Lab Data
07/20/23 03:32
07/20/23 03:32
Microbiology
07/19/23 08:46 Nasal Swab Influenza Types A & B (XIMENA) - Final
Negative for Influenza A & B, NAAT
Negative results must be combined with clinical observations
and patient history.
Nucleic Acid Amplification test (NAAT)performed on the
[employer] platform.
--- NOTE | 2023-07-20 12:55 | PTCARENOTE ---
pt being transferred to telemetry. report given to Tian on .
[2023-07-20] MEDS: NON-FORMULARY ITEM BOTH EYES (13:56)
[2023-07-20] MEDS: ZITHROMAX INFUSION 250 IV (13:56)
--- NOTE | 2023-07-20 14:58 | PTCARENOTE ---
Recieved Pt form IMU. AAOx3, denies pain, ambulated form stecher to bed x1 assit. Pt was oriented to the unit. Can make needs known. Call tello within reach.
[2023-07-20] MEDS: NON-FORMULARY ITEM 1 DROP BOTH EYES (18:11)
[2023-07-20] MEDS: ELIQUIS 2.5 MG PO (19:25)
[2023-07-20] MEDS: NON-FORMULARY ITEM 1 UNIT PO (19:28)
[2023-07-20] MEDS: NEPTAZANE 50 MG PO (19:39)
[2023-07-21] VITALS (8 sets, daily range): BP systolic 114–130; BP diastolic 59–71; PULSE 2–83; BMI 29.4
[2023-07-21] MEDS: ATIVAN 0.5 MG PO ×2 (01:12→17:59)
[2023-07-21 07:34] LABS: Hematocrit 29.4 % (39.0-52.0); Hemoglobin 9.6 g/dL (13.0-18.0); Mean Corp Hgb Conc. 32.7 g/dL (33.0-37.0); Mean Corpuscular Hgb 31.9 pg (27.0-31.0); Mean Corpuscular Volume 97.7 fL (80.0-94.0); Mean Platelet Volume 9.7 fL (7.4-10.4); Platelet Count 203 10^3/uL (130-400); Red Blood Cell Count 3.01 10^6/uL (4.70-6.10); Red Cell Dist. Width 12.7 % (11.5-14.5); White Blood Cell Count 9.3 10^3/uL (4.8-10.8)
[2023-07-21] MEDS: DUONEB 3 ML INH ×4 (07:51→19:27)
[2023-07-21 07:57] LABS: Blood Urea Nitrogen 41 mg/dl (9-20); Calcium 8.4 mg/dl (8.4-10.2); Carbon Dioxide 29 mmol/L (22-30); Chloride 105 mmol/L (98-107); Estimated Creatinine Clearance 44 ml/min; Glucose 135 mg/dl (70-99); Magnesium 2.5 mg/dl (1.6-2.3); Potassium 3.7 mmol/L (3.5-5.1); Sodium 139 mmol/L (135-145); eGFR 43.02
[2023-07-21] MEDS: MUCINEX 1200 MG PO ×2 (08:48→20:17)
[2023-07-21] MEDS: NEPTAZANE 50 MG PO ×2 (08:50→20:19)
[2023-07-21] MEDS: TOPROL XL 50 MG PO (08:51)
[2023-07-21] MEDS: LASIX 40 MG IV (08:51)
[2023-07-21] MEDS: ELIQUIS 2.5 MG PO ×2 (08:51→20:16)
[2023-07-21] MEDS: SIMBRINZA 1%-0.2% OPHTH SUSP 1 DROP RIGHT EYE ×2 (08:54→20:21)
[2023-07-21] MEDS: NSS (PRESERVATIVE FREE) IV (08:54)
--- NOTE | 2023-07-21 08:57 | W.PN.CD ---
Addendum entered and electronically signed by Vlad Bonilla MD 07/22/23 08:27:
Correction
[id number] is at least 4 (heart failure, age2, HTN)
Original Note:
Today's Communication / Plan
-
IV diuresis
Echo
consider SGLT2-I, will check co-pay
I stopped his BB
High risk, intensive monitoring
Impression / Plan
-
83 yo male with PMH of persistent atrial fibrillation and flutter, s/p multiple ablations, with recurrence, then BiV PPM and AVN ablation 03/2022, chronic HFPEF (EF 50%), HTN, CKD3b, ILD is admitted with SOB, cough, hypoxic respiratory failure.
Acute hypoxic respiratory failure: severe, improving
- Etiology not entirely clear.
- Primary lung disease with acute exacerbation + acute on chronic HFpEF exacerbation
- Not clear how much is cardiac
Beta maame
- Given wheezing and current LVEF (echo 02/2023 of 50-55%) lets STOP BB and for now not resume
Acute on chronic HFPEF
- IV Lasix
- Not clear how much of his presentation is heart failure
- As EF 50-55% could move to a regimen of HFpEF GDMT and not use beta maame
- Dr. Quezada can consider SGLT2-I and ARB over FOREIGN-I (currently on hold). MRA would be challenging with his acute on chronic renal failure
Persistent A fib s/p BiV PPM and AV pepe ablation
- Rate: NO RATE CONTROL MEDS NEEDED. AV node ablation provides rate control
- Rhythm: Anticipate accepting permanent AFib but perssisting currently. No plans for rhythm control
- [id number] is at least 3 (age2, HTN)
- Eliquis: with Cr elevation and age of 83 correct current dose is 2.5 BID
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
BiV PPM, MDT
Anemia
CRISTELA on CKD3b
- lisinopril on hold
HTN
Subjective: Feels congested. Productive cough
Physical Exam
Vital Signs/Labs
Vital Signs
Temp Pulse Resp BP Pulse Ox
98.1 F 86 16 120/71 96
07/21/23 07:00 07/21/23 07:55 07/21/23 07:55 07/21/23 07:00 07/21/23 07:55
07/20/23 07/21/23 07/22/23
06:59 06:59 06:59
Actual Weight 109 kg
07/21/23 07:14
07/21/23 07:14
Magnesium 2.5 mg/dl (1.6-2.3) H 07/21/23 07:14
07/19/23
08:34
Xnp-F-Yyzzejrszmp Pept 4060
LAB Results
07/19/23
08:34
Troponin I 0.014
Physical Exam
Constitutional: No acute distress
EENT: Anicteric
Cardiovascular: Rhythm & rate is regular and Pedal edema is absent
Respiratory: Respiratory effort normal, Wheeze Present and Crackles Present
GI: Soft, Distention absent and Flat
Neuro/Psych: AO x 3
Data Reviewed
-
Date of Service: July 21, 2023
--- NOTE | 2023-07-21 09:17 | W.PN.PUL3 ---
Today's Communication / Plan
-
Remains on 4L NC, will need home O2 eval on this visit when able to get <3L
Continued on IV lasix, continue to follow daily weights/LE edema/O2 requirements, cards following
ECHO pending today, await results
Off steroids
Consider stopping abx and observing off
Encouraged IS, PT, ambulation
Assessment
-
83-year-old male with a history of underlying COPD, CAD, CHF, atrial fibrillation on Eliquis presented with increasing shortness of breath and pulmonary consulted for shortness of breath 07/19/2023.
Shortness of breath
Bilateral interstitial opacifications
Acute on top of chronic diastolic CHF-BNP 4060
COPD with acute exacerbation-significant wheezing on exam-refused steroids-wheezing improved 24 hours later-possibly related to diuresis
CRISTELA
PAF status post ablation, maze
Najlyz-kbwivqdgkh-vipvejioxw 10.0
Hyperglycemia-blood sugar 137
Hypoalbuminemia
Conditions present prior to admission:
Hypertension.
PAF/multiple ablations-2017, MAZE 2020/cardioversions.
Chronic anticoagulation
CHF.
GERD.
Chronic kidney disease stage IIIb.
Anxiety.
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 June
Renal calculi.
Former smoker quit 2018.
COPD.
Tonsillectomy. Hemorrhoidectomy. Biventricular pacemaker implant. AV peep ablation 03/2022. Laser lithotripsy and stenting 10/2021. Cataract extraction.
Plan
Respiratory status improved, remains on 4L NC
Wean supplemental oxygen, eventual home O2 eval needed
He is not noted to be on any home oxygen
Decadron for significant wheezing on admission-patient refused
Wheezing now improved-possibly related to diuresis
On exam, mostly upper airway wheezing noted, clear on lungs
At this point no clear indication for steroids
Aspiration precautions
Mucolytic's
Mucus clearing devices
Incentive spirometry
Acute HFpEF superimposed on ILD
Continue diuresis as tolerated
Follow renal function, electrolytes, intake/output, lower extremity edema and weight
Continue to replace electrolytes as needed
Cardiology evaluation ongoing-correspondence reviewed
Updated echocardiogram pending/await results today
Cultures reviewed-unrevealing thus far
Check sputum culture-unable to produce
Empiric antibiotics-Rocephin and azithromycin initiated
Consider stopping abx and observing off without clinical signs of infection
Follow renal function-minimally improved
Consider nephrology evaluation if renal function worsens
DVT prophylaxis
Nutrition
Early mobilization
Dr. Sandoval reviewed with at the bedside on 07/19/2023
Patient was last seen by Dr. June 07/09/2023-interstitial lung disease-encourage follow-up
Diagnostic data:
Chest x-ray 03/04/2022-no pneumothorax, no acute mediastinal abnormalities, mild stable pleural-parenchymal scarring, lungs otherwise clear
Chest x-ray 07/19/2023-some widespread bilateral interstitial opacifications as well as possible small superimposed patchy right upper lobe airspace disease
Echocardiogram 05/25/2021-EF 50%, stage II diastolic dysfunction, PA systolic 30-35
Echocardiogram 02/13/2023-EF 50-55%, moderately dilated left atrium, no valvular disease, no change from [address]
CT chest 05/24/2021-increased interstitial markings with groundglass opacifications
CT chest 08/17/2021-resolution of bilateral interstitial infiltrates, stable lung nodules for several years
PFT 11/22/2022-FEV1 2.8-78%, FVC 6.8-82%, TLC 82%, RV 75%, DLCO 44%, DLCO/VA 50%
PFT 07/09/2023-FEV1 2.6-72%, FVC 4-82%, TLC 91%, RV 89%, DLCO 46%, DLCO/VA 64%
Immunoglobulin levels 05/25/2021-normal with exception of mildly decreased IgG-607
Subjective Data
-
Date of Service:
Date of Service: July 21, 2023
Chief Complaint: Pulmonary Follow Up
Subjective:
patient seen and examined, feels his sob is improving
had been placed on room air and desaturated to 83%, now placed on 4L
at bedside
Objective Data
Data Reviewed
Vital Signs / I&O / Oxygen:
Vital Signs
Temp Pulse Resp BP Pulse Ox
98.1 F 92 16 120/71 96
07/21/23 07:00 07/21/23 08:50 07/21/23 07:55 07/21/23 08:50 07/21/23 07:55
Intake and Output
07/20/23 07/21/23 07/22/23
06:59 06:59 06:59
Intake Total 480 / 480
Output Total 350 / 350 960 / 960
Balance -350 / -350 -480 / -480
SaO2 96
Nasal Cannula flow liters per 4
minute
Physical Exam
General: Respiratory Distress (n), Comfortable and Other (no acute distress)
HEENT: Normocephalic, Anicteric and Moist Mucous Membranes
Cardiovascular: S1-S2, Regular Rhythm and Peripheral Edema (trace)
Respiratory: Clear, Wheeze (upper airway wheezing noted), Non-Labored Respirations, Accessory Resp Muscle Use (n) and Stridor
GI: Soft, Non Distended and Non Tender
Neurology: Awake, Alert, Oriented, AO x 3, No Motor Deficits and Other ( decreased hearing)
Skin: Warm, Good Color, Cyanosis (n) and Jaundice (n)
Labs/Micro/Reports
Lab Data
07/21/23 07:14
07/21/23 07:14
Microbiology
07/19/23 19:18 Nose MRSA Screen - Final
No Methicillin Resistant Staphylococcus aureus isolated.
07/19/23 08:46 Nasal Swab Influenza Types A & B (XIMENA) - Final
Negative for Influenza A & B, NAAT
Negative results must be combined with clinical observations
and patient history.
Nucleic Acid Amplification test (NAAT)performed on the
[employer] platform.
--- NOTE | 2023-07-21 09:19 | W.PN.HOSP.TC ---
Today's Communication/Plan
-
see bold
Assessment / Plan
Assessment / Plan
HPI: 83-year-old male with history of CHF, pacer, A fib on Eliquis, COPD presented with progressively worsening shortness of breath over the past week.�SOB worse with exertion. This is associated with productive cough.�
He denies to significant leg swelling, CP, abd pain etc.
CXR:
Some mild widespread bilateral interstitial opacities as well as possible small superimposed patchy right upper lobe alveolar opacity. Some differential diagnostic possibilities include pneumonitis or atypical edema.
A/P:
# SOB/SONG and productive cough, ddx include acute CHF vs CAP, see below
# Acute hypoxic resp failure
BIPAP -> 6L NC, now on room air
# Acute on chronic diastolic heart failure
BNP 4060
CXR report as above
weight 112 kg from baseline 106, monitor daily weight, trend creatinine
Appreciate cardiology input, continue IV Lasix
Follow-up on echocardiogram, consider SGLT2�inhibitor
# CRISTELA superimposed on stage IIIa chronic kidney disease
Creatinine 1.6 today, improved from 1.8 upon admission, baseline 1.3
Monitor SCr with IV lasix
# Possible CAP
COVID/Flu are negative, MRSA negative, sputum Gram stain shows over contamination
S/p ceftriaxone/azithromycin in ED, cont ceftriaxone/azithromycin
Patient refused steroid, will DC Decadron with absence of wheezing
Pulmonology following
# Paroxysmal atrial fibrillation and atrial flutter s/p pulmonary vein isolation ablation x2 in 2018, Maze 01/2021.
# Status post biventricular permanent pacemaker 03/04/2022.
Cont [employer] Eliquis, cardiology discontinued metoprolol
# Hypertension.
Currently hypotensive, Hold [employer] Lisinopril and Norvasc
Metoprolol discontinued by cardiology
# Hyperlipidemia
# Gastroesophageal reflux disease.
IV PPI
DVT prophylaxis�Eliquis
Full code
Updated at bedside 07/21
Physical Exam
General: No acute distress
HEENT: Normocephalic, Atraumatic, EOMI, MMM
Respiratory: Coarse breath sounds with scattered wheezing
Cardiac: Normal S1/S2, Regular Rate and Rhythm
GI: Soft, Nontender, Nondistended, Normal Bowel Sounds
Extremities: No Clubbing, Cyanosis
Anticipated Discharge: Within 24 hours
Subjective/Interval History
-
Date of Service: July 21, 2023
Patient has dyspnea with activity. Continues to cough, and feel congested.
Objective Data
-
Labs:
Laboratory Results
07/21/23
07:14
WBC 9.3
Hgb 9.6 L
Hct 29.4 L
Plt Count 203 D
Sodium 139
Potassium 3.7
Chloride 105
Carbon Dioxide 29
BUN 41 H
Creatinine 1.6 H
Glucose 135 H
Calcium 8.4
Vital Signs:
Vital Signs
Temp Pulse Resp BP Pulse Ox
98.1 F 92 16 120/71 96
07/21/23 07:00 07/21/23 08:50 07/21/23 07:55 07/21/23 08:50 07/21/23 07:55
I&O
07/20/23 07/21/23 07/22/23
06:59 06:59 06:59
Intake Total 480 / 480
Output Total 350 / 350 960 / 960
Balance -350 / -350 -480 / -480
[2023-07-21] MEDS: REFRESH EYE DROPS (PF) 1 DROPS BOTH EYES ×5 (10:30→22:25)
--- NOTE | 2023-07-21 11:17 | CM ---
Patient seen bedside, initial assessment completed. Patients Laura came in towards the end of assessment. Patient reports he resides with his in a two story home with a basement, two steps to enter. Patient reports having [facility] in the
past, SNF in the past but cannot remember name of facility. Patient confirms PCP Dr. Michelle, pharmacy [facility] on [facility]. CM discussed recommendation from PT of home health versus SNF. Per patient and , patient is able to use the stairs
at home and does not use any type of equipment at home. Patient reports he is unsure about home health versus SNF and depends on how he is doing. CM will continue to follow for discharge planning needs.
Plan; VN vs SNF, patient undecided at this time.
[2023-07-21] MEDS: STERILE WATER FOR INJECTION 10 ML IV (14:25)
[2023-07-21] MEDS: ROCEPHIN 1000 MG IV (14:25)
[2023-07-21] MEDS: ZITHROMAX INFUSION 250 IV (14:27)
[2023-07-21] MEDS: NON-FORMULARY ITEM 1 DROP BOTH EYES (18:03)
[2023-07-21] MEDS: NON-FORMULARY ITEM 1 UNIT PO (20:20)
[2023-07-22] VITALS (8 sets, daily range): BP systolic 124–149; BP diastolic 56–78; PULSE 2–64; O2SAT 97; BMI 29.2
[2023-07-22 06:15] LABS: Hematocrit 30.5 % (39.0-52.0); Hemoglobin 10.2 g/dL (13.0-18.0); Mean Corp Hgb Conc. 33.4 g/dL (33.0-37.0); Mean Corpuscular Hgb 32.2 pg (27.0-31.0); Mean Corpuscular Volume 96.2 fL (80.0-94.0); Mean Platelet Volume 9.4 fL (7.4-10.4); Platelet Count 247 10^3/uL (130-400); Red Blood Cell Count 3.17 10^6/uL (4.70-6.10); Red Cell Dist. Width 13.1 % (11.5-14.5); White Blood Cell Count 9.5 10^3/uL (4.8-10.8)
[2023-07-22 06:32] LABS: Blood Urea Nitrogen 36 mg/dl (9-20); Calcium 8.5 mg/dl (8.4-10.2); Carbon Dioxide 28 mmol/L (22-30); Chloride 103 mmol/L (98-107); Estimated Creatinine Clearance 55 ml/min; Glucose 124 mg/dl (70-99); Magnesium 2.5 mg/dl (1.6-2.3); Potassium 4.1 mmol/L (3.5-5.1); Sodium 141 mmol/L (135-145); eGFR 55.19
--- NOTE | 2023-07-22 07:44 | W.PN.CD ---
Today's Communication / Plan
-
- continue diuresis -> he reports good output
- he thinks goal weight 242 lbs., but we are below that. Will continue diuresis and reset goal weight at discharge
- Echo unchanged
Impression / Plan
-
83 yo male with PMH of persistent atrial fibrillation and flutter, s/p multiple ablations, with recurrence, then BiV PPM and AVN ablation 03/2022, chronic HFPEF (EF 50%), HTN, CKD3b, ILD is admitted with SOB, cough, hypoxic respiratory failure.
Acute hypoxic respiratory failure: severe, improving
- Etiology not entirely clear.
- continue diuresis -> he reports good output
- he thinks goal weight 242 lbs., but we are below that. Will continue diuresis and reset goal weight at discharge
Acute on chronic HFPEF
- IV Lasix
- Not clear how much of his presentation is heart failure
- Echo unchanged
Persistent A fib s/p BiV PPM and AV pepe ablation
- Rate: AV node ablation provides rate control
- Eliquis: with Cr elevation and age of 83 correct current dose is 2.5 BID
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
BiV PPM, MDT
Anemia
CRISTELA on CKD3b - lisinopril on hold
HTN - stable
Subjective: Cough unchanged. No CP/palps. Dyspnea a bit better
Laboratory Data
07/22/23
05:41
Hgb 10.2 L
Creatinine 1.3
Selected Entries
07/20/23
03:59 07/22/23
06:00
Actual Weight 240 lb 4.862 oz 239 lb 11.2 oz
Generic Name Dose Route Start Last Admin
Trade Name Freq PRN Reason Stop Dose Admin
Furosemide 40 mg 07/19/23 15:19
Furosemide 40 Mg (10 Mg/Ml) 4 Ml Vial IV 08/16/23 15:18
DAILY DEBI
Apixaban 2.5 mg 07/20/23 20:00
Apixaban (Eliquis) 5 Mg Tablet PO 08/16/23 19:59
BID DEBI
Non-Formulary Medication 0 unit 07/19/23 22:00
*Pt Own Med* Simvastatin 20mg Po Hs PO 08/16/23 21:59
HS DEBI
Physical Exam
Vital Signs/Labs
Vital Signs
Temp Pulse Resp BP Pulse Ox
36.7 C 63 28 129/63 96
07/22/23 03:15 07/22/23 03:15 07/22/23 03:15 07/22/23 03:15 07/22/23 03:15
07/21/23 07/22/23 07/23/23
06:59 06:59 06:59
Actual Weight 239 lb 11.2 oz
07/22/23 05:41
07/22/23 05:41
Magnesium 2.5 mg/dl (1.6-2.3) H 07/22/23 05:41
07/19/23
08:34
Ttx-P-Vkfnsbgvkkc Pept 4060
LAB Results
07/19/23
08:34
Troponin I 0.014
Physical Exam
Constitutional: No acute distress
EENT: Anicteric and Moist mucous membranes
Cardiovascular: Rhythm & rate is regular, Pedal edema is absent, Systolic murmur absent and Diastolic murmur absent
Respiratory: Rhonchi Present
GI: Soft, Distention absent, Non tender and Normal bowel sounds
Neuro/Psych: Alert and Oriented
Data Reviewed
-
Date of Service: July 22, 2023
Echo: Report Reviewed by me
[2023-07-22] MEDS: DUONEB 3 ML INH ×4 (08:26→20:51)
[2023-07-22] MEDS: ELIQUIS 2.5 MG PO ×2 (08:59→21:51)
[2023-07-22] MEDS: NEPTAZANE 50 MG PO ×2 (09:00→21:59)
[2023-07-22] MEDS: MUCINEX 1200 MG PO ×2 (09:00→21:52)
[2023-07-22] MEDS: REFRESH EYE DROPS (PF) 1 DROPS BOTH EYES ×5 (09:00→21:57)
[2023-07-22] MEDS: SIMBRINZA 1%-0.2% OPHTH SUSP 1 DROP RIGHT EYE ×2 (09:01→21:53)
[2023-07-22] MEDS: LASIX 40 MG IV (09:02)
[2023-07-22] MEDS: NSS (PRESERVATIVE FREE) IV (09:07)
--- NOTE | 2023-07-22 09:48 | W.PN.PUL3 ---
Today's Communication / Plan
-
Remains on IV diuresis, doing well--cards following for plan to transition to PO
Encouraged OOB/PT
Can stop abx and observe off
Home O2 eval
Discharge planning per team
Outpatient pulmonary FU recommended
Assessment
-
83-year-old male with a history of underlying COPD, CAD, CHF, atrial fibrillation on Eliquis presented with increasing shortness of breath and pulmonary consulted for shortness of breath 07/19/2023.
Shortness of breath
Bilateral interstitial opacifications
Acute on top of chronic diastolic CHF-BNP 4060
COPD with acute exacerbation-significant wheezing on exam-refused steroids-wheezing improved 24 hours later-possibly related to diuresis
CRISTELA
PAF status post ablation, maze
Abjuhi-jbebrlbqrd-jkwihppwqv 10.0
Hyperglycemia-blood sugar 137
Hypoalbuminemia
Conditions present prior to admission:
Hypertension.
PAF/multiple ablations-2017, MAZE 2020/cardioversions.
Chronic anticoagulation
CHF.
GERD.
Chronic kidney disease stage IIIb.
Anxiety.
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 June
Renal calculi.
Former smoker quit 2018.
COPD.
Tonsillectomy. Hemorrhoidectomy. Biventricular pacemaker implant. AV pepe ablation 03/2022. Laser lithotripsy and stenting 10/2021. Cataract extraction.
Plan
Respiratory status improved, remains on 4L NC
Wean supplemental oxygen, check home O2 eval
He is not noted to be on any home oxygen
Decadron for significant wheezing on admission-patient refused
Wheezing now improved-possibly related to diuresis
On exam, mostly upper airway wheezing noted, clear on lungs
At this point no clear indication for steroids
Aspiration precautions
Mucolytic's
Mucus clearing devices
Incentive spirometry
Acute HFpEF superimposed on ILD
Continue diuresis as tolerated
Follow renal function, electrolytes, intake/output, lower extremity edema and weight
Continue to replace electrolytes as needed
Cardiology evaluation ongoing-correspondence reviewed
Updated echocardiogram pending/await results today
Cultures reviewed-unrevealing thus far
Check sputum culture-unable to produce
Empiric antibiotics-Rocephin and azithromycin initiated
Consider stopping abx and observing off without clinical signs of infection
Follow renal function-minimally improved
Consider nephrology evaluation if renal function worsens
DVT prophylaxis
Nutrition
Early mobilization
Dr. Sandoval reviewed with at the bedside on 07/19/2023
Patient was last seen by Dr. June 07/09/2023-interstitial lung disease-encourage follow-up
Diagnostic data:
Chest x-ray 03/04/2022-no pneumothorax, no acute mediastinal abnormalities, mild stable pleural-parenchymal scarring, lungs otherwise clear
Chest x-ray 07/19/2023-some widespread bilateral interstitial opacifications as well as possible small superimposed patchy right upper lobe airspace disease
Echocardiogram 05/25/2021-EF 50%, stage II diastolic dysfunction, PA systolic 30-35
Echocardiogram 02/13/2023-EF 50-55%, moderately dilated left atrium, no valvular disease, no change from 2021
CT chest 05/24/2021-increased interstitial markings with groundglass opacifications
CT chest 08/17/2021-resolution of bilateral interstitial infiltrates, stable lung nodules for several years
PFT 11/22/2022-FEV1 2.8-78%, FVC 6.8-82%, TLC 82%, RV 75%, DLCO 44%, DLCO/VA 50%
PFT 07/09/2023-FEV1 2.6-72%, FVC 4-82%, TLC 91%, RV 89%, DLCO 46%, DLCO/VA 64%
Immunoglobulin levels 05/25/2021-normal with exception of mildly decreased IgG-607
Subjective Data
-
Date of Service:
Date of Service: July 22, 2023
Chief Complaint: Pulmonary Follow Up
Subjective:
patient seen and examined, no acute events ON
remains on 4L NC
Objective Data
Data Reviewed
Vital Signs / I&O / Oxygen:
Vital Signs
Temp Pulse Resp BP Pulse Ox
98 F 80 16 147/78 97
07/22/23 07:50 07/22/23 09:00 07/22/23 08:26 07/22/23 09:00 07/22/23 08:26
Intake and Output
07/21/23 07/22/23 07/23/23
06:59 06:59 06:59
Intake Total 480 / 480 1320 / 1320
Output Total 960 / 960 1070 / 1070
Balance -480 / -480 250 / 250
SaO2 97
Nasal Cannula flow liters per 4
minute
Physical Exam
General: Respiratory Distress (n), Comfortable and Other (no acute distress)
HEENT: Normocephalic, Anicteric and Moist Mucous Membranes
Cardiovascular: S1-S2, Regular Rhythm and Peripheral Edema (trace)
Respiratory: Clear, Wheeze (upper airway wheezing noted), Non-Labored Respirations, Accessory Resp Muscle Use (n) and Stridor
GI: Soft, Non Distended and Non Tender
Neurology: Awake, Alert, Oriented, AO x 3, No Motor Deficits and Other ( decreased hearing)
Skin: Warm, Good Color, Cyanosis (n) and Jaundice (n)
Labs/Micro/Reports
Lab Data
07/22/23 05:41
07/22/23 05:41
Microbiology
07/21/23 07:08 Sputum Respiratory Culture - Final
07/21/23 07:08 Sputum Gram Stain - Final
07/19/23 19:18 Nose MRSA Screen - Final
No Methicillin Resistant Staphylococcus aureus isolated.
07/19/23 08:46 Nasal Swab Influenza Types A & B (XIMENA) - Final
Negative for Influenza A & B, NAAT
Negative results must be combined with clinical observations
and patient history.
Nucleic Acid Amplification test (NAAT)performed on the
[employer] platform.
--- NOTE | 2023-07-22 10:18 | W.PN.HOSP.TC ---
Addendum entered and electronically signed by Johnson Keenan MD 07/22/23 14:03:
As per pulmonology, there is no pneumonia. Will stop Rocephin. Continue azithromycin for anti-inflammatory effects.
Pneumonia has been ruled out.
Original Note:
Today's Communication/Plan
-
see bold
Assessment / Plan
Assessment / Plan
HPI: 83-year-old male with history of CHF, pacer, A fib on Eliquis, COPD presented with progressively worsening shortness of breath over the past week.�SOB worse with exertion. This is associated with productive cough.�
He denies to significant leg swelling, CP, abd pain etc.
CXR:
Some mild widespread bilateral interstitial opacities as well as possible small superimposed patchy right upper lobe alveolar opacity. Some differential diagnostic possibilities include pneumonitis or atypical edema.
A/P:
# SOB/SONG and productive cough, ddx include acute CHF vs CAP, see below
# Acute hypoxic resp failure
Status post BiPAP, currently requiring 4 L, down from 6 L
Continue to wean as tolerated
PT rec HH
# Acute on chronic diastolic heart failure
BNP 4060
CXR report as above
weight 112 kg from baseline 106, monitor daily weight, trend creatinine
Appreciate cardiology input, continue IV Lasix
Echo unchanged, original goal weight was 242 lbs, will need a new goal weight
# CRISTELA superimposed on stage IIIa chronic kidney disease
Creatinine 1.3 today, was 1.6, improved from 1.8 upon admission, baseline 1.3
Monitor SCr with IV lasix
# Possible CAP
COVID/Flu are negative, MRSA negative, sputum Gram stain shows over contamination
S/p ceftriaxone/azithromycin in ED, cont ceftriaxone/azithromycin
Patient refused steroid, will DC Decadron
Pulmonology following
# Paroxysmal atrial fibrillation and atrial flutter s/p pulmonary vein isolation ablation x2 in 2018, Maze 01/2021.
# Status post biventricular permanent pacemaker 03/04/2022.
Cont [employer] Eliquis, cardiology discontinued metoprolol
# Hypertension.
Currently hypotensive, Hold [employer] Lisinopril and Norvasc
Metoprolol discontinued by cardiology
# Hyperlipidemia
# Gastroesophageal reflux disease.
IV PPI
DVT prophylaxis�Eliquis
Full code
Updated at bedside 07/21
Physical Exam
General: No acute distress
HEENT: Normocephalic, Atraumatic, EOMI, MMM
Respiratory: Coarse breath sounds with scattered wheezing
Cardiac: Normal S1/S2, Regular Rate and Rhythm
GI: Soft, Nontender, Nondistended, Normal Bowel Sounds
Extremities: No Clubbing, Cyanosis
Anticipated Discharge: 24 - 48 hours
Subjective/Interval History
-
Date of Service: July 22, 2023
Patient feels better overall, but continues to have dyspnea with activity.
Objective Data
-
Labs:
Laboratory Results
07/22/23
05:41
WBC 9.5
Hgb 10.2 L
Hct 30.5 L
Plt Count 247 D
Sodium 141
Potassium 4.1
Chloride 103
Carbon Dioxide 28
BUN 36 H
Creatinine 1.3
Glucose 124 H
Calcium 8.5
Vital Signs:
Vital Signs
Temp Pulse Resp BP Pulse Ox
98 F 80 16 147/78 97
07/22/23 07:50 07/22/23 09:00 07/22/23 08:26 07/22/23 09:00 07/22/23 08:26
I&O
07/21/23 07/22/23 07/23/23
06:59 06:59 06:59
Intake Total 480 / 480 1320 / 1320
Output Total 960 / 960 1070 / 1070
Balance -480 / -480 250 / 250
[2023-07-22] MEDS: MIRALAX 17 GRAMS PO (12:22)
[2023-07-22] MEDS: DUPHALAC/CHRONULAC 20 GRAMS PO (12:23)
[2023-07-22] MEDS: ROCEPHIN 1000 MG IV (12:24)
[2023-07-22] MEDS: STERILE WATER FOR INJECTION 10 ML IV (12:25)
[2023-07-22] MEDS: ZITHROMAX INFUSION 250 IV (13:16)
--- NOTE | 2023-07-22 14:04 | CM ---
Addendum entered by Milka Mercado 07/22/23 14:31:
Per Pulm- pulm rehab can only be arranged as outpatient, patient would need to been seen for follow up and then could be arranged. CM left voicemail for Laura. CM will submit a referral to [facility]. Watch for home O2 assessment.
Original Note:
Patient seen bedside. CM discussed PT recommendation of home health, patient is agreeable and reports his is the best person to contact in regards to setting it up. CM spoke with , Laura, agreeable to VN services. Per , patient has had
[facility] in the past and had a great experience. Laura inquiring about pulmonary rehab and if that is an option for patient, CM will [facility] Hospitalist. CM will continue to follow for discharge planning needs.
Plan; home with [facility], inquiring about pulm rehab.
[2023-07-22] MEDS: NON-FORMULARY ITEM 1 DROP BOTH EYES (17:48)
[2023-07-22] MEDS: NON-FORMULARY ITEM 1 UNIT PO (21:53)
[2023-07-22] MEDS: ATIVAN 0.5 MG PO (22:00)
[2023-07-22] MEDS: MIRALAX PO (22:01)
[2023-07-23 05:35] VITALS: BP 126/59; BMI 29.2
[2023-07-23 07:30] VITALS: BP 157/71
[2023-07-23 07:49] LABS: Hematocrit 30.9 % (39.0-52.0); Hemoglobin 10.1 g/dL (13.0-18.0); Mean Corp Hgb Conc. 32.7 g/dL (33.0-37.0); Mean Corpuscular Hgb 31.9 pg (27.0-31.0); Mean Corpuscular Volume 97.5 fL (80.0-94.0); Mean Platelet Volume 9.2 fL (7.4-10.4); Platelet Count 234 10^3/uL (130-400); Red Blood Cell Count 3.17 10^6/uL (4.70-6.10); Red Cell Dist. Width 12.9 % (11.5-14.5); White Blood Cell Count 8.9 10^3/uL (4.8-10.8)
[2023-07-23] MEDS: DUONEB 3 ML INH ×2 (07:57→11:29)
[2023-07-23 08:21] LABS: Blood Urea Nitrogen 25 mg/dl (9-20); Calcium 8.4 mg/dl (8.4-10.2); Chloride 104 mmol/L (98-107); Estimated Creatinine Clearance 65 ml/min; Glucose 115 mg/dl (70-99); Magnesium 2.4 mg/dl (1.6-2.3); Potassium 3.6 mmol/L (3.5-5.1); Sodium 140 mmol/L (135-145); eGFR > 60.00
--- NOTE | 2023-07-23 08:42 | W.PN.CD ---
Today's Communication / Plan
-
- MEDS: Lasix 40 po qd, Simvastatin 20 po qd, Apixaban 5 BID, amlodipine 10 po qd.
- Follow up: 2:20 on 07/31 with Yuli Ellis
- Labs: BMP in one week
- updated patient and
Impression / Plan
-
83 yo male with PMH of persistent atrial fibrillation and flutter, s/p multiple ablations, with recurrence, then BiV PPM and AVN ablation 03/2022, chronic HFPEF (EF 50%), HTN, CKD3b, ILD is admitted with SOB, cough, hypoxic respiratory failure.
Acute hypoxic respiratory failure: severe, improving
- Etiology not entirely clear.
- continue diuresis -> he reports good output but weight has not changed
- he thinks goal weight 242 lbs., but we are below that.
Acute on chronic HFPEF
- IV Lasix
- Not clear how much of his presentation is heart failure
- Echo unchanged
Persistent A fib s/p BiV PPM and AV pepe ablation
- Rate: AV node ablation provides rate control
- Eliquis: back to apixaban 5 po BID
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
BiV PPM, MDT
Anemia
CRISTELA on CKD3b - lisinopril on hold
HTN - stable
Dispo
- MEDS: Lasix 40 po qd, Simvastatin 20 po qd, Apixaban 5 BID, amlodipine 10 po qd.
- Follow up: 2:20 on 07/31 with Yuli Ellis
- Labs: BMP in one week
- updated patient and
Subjective: Dyspnea improved but he is unable to quantify it has returned to baseline. There is no CP or palpitations
Laboratory Data
07/23/23
07:13
Hgb 10.1 L
Creatinine 1.1
Selected Entries
07/19/23
08:25 07/23/23
05:35
Actual Weight 247 lb 9.266 oz 240 lb
Generic Name Dose Route Start Last Admin
Trade Name Tatiana PRN Reason Stop Dose Admin
Furosemide 40 mg 07/19/23 15:19
Furosemide 40 Mg (10 Mg/Ml) 4 Ml Vial IV 08/16/23 15:18
DAILY DEBI
Non-Formulary Medication 0 unit 07/19/23 22:00
*Pt Own Med* Simvastatin 20mg Po Hs PO 08/16/23 21:59
HS DEBI
Apixaban 2.5 mg 07/20/23 20:00
Apixaban (Eliquis) 5 Mg Tablet PO 08/16/23 19:59
BID DEBI
Methazolamide 50 mg 07/20/23 20:00
Methazolamide 50 Mg Tablet PO 08/17/23 19:59
BID DEBI
Physical Exam
Vital Signs/Labs
Vital Signs
Temp Pulse Resp BP Pulse Ox
36.4 C 92 18 157/71 95
07/23/23 07:30 07/23/23 07:59 07/23/23 07:59 07/23/23 07:30 07/23/23 07:59
07/22/23 07/23/23 07/24/23
06:59 06:59 06:59
Actual Weight 239 lb 11.2 oz 240 lb
07/23/23 07:13
07/23/23 07:13
Magnesium 2.4 mg/dl (1.6-2.3) H 07/23/23 07:13
07/19/23
08:34
Pvb-X-Iguazoaueem Pept 4060
Physical Exam
Constitutional: No acute distress
EENT: Anicteric and Moist mucous membranes
Cardiovascular: Rhythm & rate is regular, Pedal edema is absent, Systolic murmur absent and Diastolic murmur absent
Respiratory: Respiratory effort normal
GI: Soft, Distention absent and Non tender
Data Reviewed
-
Date of Service: July 23, 2023
--- NOTE | 2023-07-23 08:44 | W.PN.HOSP.TC ---
Today's Communication/Plan
-
Cleared by cardiology and pulmonology for discharge today
Assessment / Plan
Assessment / Plan
HPI: 83-year-old male with history of CHF, pacer, A fib on Eliquis, COPD presented with progressively worsening shortness of breath over the past week.�SOB worse with exertion. This is associated with productive cough.�
He denies to significant leg swelling, CP, abd pain etc.
CXR:
Some mild widespread bilateral interstitial opacities as well as possible small superimposed patchy right upper lobe alveolar opacity. Some differential diagnostic possibilities include pneumonitis or atypical edema.
A/P:
# SOB/SONG and productive cough, ddx include acute CHF vs CAP, see below
# Acute hypoxic resp failure
Status post BiPAP, currently on RA, down from 6 L
Home oxygen prescription eval performed, he is 93% on room air at rest, 92% on room air with activity.
PT rec HH, stable for discharge today
# Acute on chronic diastolic heart failure
BNP 4060
CXR report as above
weight 112 kg from baseline 106, monitor daily weight, trend creatinine
Appreciate cardiology input, resolved status post IV Lasix
Echo unchanged, original goal weight was 242 lbs
Cardiology recommends being discharged Lasix 40 mg p.o. daily
# CRISTELA superimposed on stage IIIa chronic kidney disease
Creatinine 1.1 today, was 1.3, was 1.6, improved from 1.8 upon admission, baseline 1.3
# Pneumonia ruled out
COVID/Flu are negative, MRSA negative, sputum Gram stain shows over contamination
S/p ceftriaxone/azithromycin in ED, status post ceftriaxone/azithromycin for prophylaxis
Appreciate pulmonology input, patient refused steroids, pulmonology recommends outpatient follow-up
# Paroxysmal atrial fibrillation and atrial flutter s/p pulmonary vein isolation ablation x2 in 2018, Maze 01/2021.
# Status post biventricular permanent pacemaker 03/04/2022.
Cont SHRINKER Eliquis, cardiology discontinued metoprolol
# Hypertension.
Blood pressure dipped as low as 98/78
Metoprolol discontinued by cardiology
Lisinopril discontinued
Continue amlodipine
# Hyperlipidemia
# Gastroesophageal reflux disease.
IV PPI
DVT prophylaxis�Eliquis
Full code
Updated at bedside 07/23
Physical Exam
General: No acute distress
HEENT: Normocephalic, Atraumatic, EOMI, MMM
Respiratory: Coarse breath sounds with scattered wheezing
Cardiac: Normal S1/S2, Regular Rate and Rhythm
GI: Soft, Nontender, Nondistended, Normal Bowel Sounds
Extremities: No Clubbing, Cyanosis
Anticipated Discharge: Today
Subjective/Interval History
-
Date of Service: July 23, 2023
Patient continues to have dyspnea with activity, overall improved from admission.
Objective Data
-
Labs:
Laboratory Results
07/23/23
07:13
WBC 8.9
Hgb 10.1 L
Hct 30.9 L
Plt Count 234
Sodium 140
Potassium 3.6
Chloride 104
Carbon Dioxide Pending
BUN 25 H
Creatinine 1.1
Glucose 115 H
Calcium 8.4
Vital Signs:
Vital Signs
Temp Pulse Resp BP Pulse Ox
97.6 F 92 18 157/71 95
07/23/23 07:30 07/23/23 07:59 07/23/23 07:59 07/23/23 07:30 07/23/23 07:59
I&O
07/22/23 07/23/23 07/24/23
06:59 06:59 06:59
Intake Total 1320 / 1320 1815 / 1815
Output Total 1070 / 1070 630 / 630
Balance 250 / 250 1185 / 1185
[2023-07-23 08:53] LABS: Carbon Dioxide 30 mmol/L (22-30)
[2023-07-23 08:55] VITALS: BP 146/64; PULSE 74; O2SAT 97
--- NOTE | 2023-07-23 09:21 | W.PN.PUL3 ---
Today's Communication / Plan
-
Doing well, stable on RA now
Home O2 assessment demonstrating no need for O2 at rest or with exertion
This was reviewed with patient and today
Discussed outpatient pulmonary FU in 4-6 weeks
Discharge planning per team today
We will sign off at this time, please call with questions
Assessment
-
83-year-old male with a history of underlying COPD, CAD, CHF, atrial fibrillation on Eliquis presented with increasing shortness of breath and pulmonary consulted for shortness of breath 07/19/2023.
Shortness of breath
Bilateral interstitial opacifications
Acute on top of chronic diastolic CHF-BNP 4060
COPD with acute exacerbation-significant wheezing on exam-refused steroids-wheezing improved 24 hours later-possibly related to diuresis
CRISTELA
PAF status post ablation, maze
Jkcsmq-krqxglckzb-uvwwjzllve 10.0
Hyperglycemia-blood sugar 137
Hypoalbuminemia
Conditions present prior to admission:
Hypertension.
PAF/multiple ablations-2017, MAZE 2020/cardioversions.
Chronic anticoagulation
CHF.
GERD.
Chronic kidney disease stage IIIb.
Anxiety.
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 June
Renal calculi.
Former smoker quit 2018.
COPD.
Tonsillectomy. Hemorrhoidectomy. Biventricular pacemaker implant. AV pepe ablation 03/2022. Laser lithotripsy and stenting 10/2021. Cataract extraction.
Plan
Respiratory status improved, remains on 2L NC
Wean supplemental oxygen, check home O2 eval --92% sherif with ambulation, does not require O2
He is not noted to be on any home oxygen previously
Decadron for significant wheezing on admission-patient refused
Wheezing now improved-possibly related to diuresis
On exam, mostly upper airway wheezing noted, clear on lungs
At this point no clear indication for steroids
Aspiration precautions
Mucolytic's
Mucus clearing devices
Incentive spirometry
Acute HFpEF superimposed on ILD
Continue diuresis as tolerated
Follow renal function, electrolytes, intake/output, lower extremity edema and weight
Continue to replace electrolytes as needed
Cardiology evaluation ongoing-correspondence reviewed
Updated echocardiogram pending/await results today
Cultures reviewed-unrevealing thus far
Check sputum culture-unable to produce
Empiric antibiotics-Rocephin and azithromycin initiated
Consider stopping abx and observing off without clinical signs of infection
Follow renal function-minimally improved
Consider nephrology evaluation if renal function worsens
DVT prophylaxis
Nutrition
Early mobilization
Dr. Sandoval reviewed with at the bedside on 07/19/2023
Patient was last seen by Dr. June 07/09/2023-interstitial lung disease-encourage follow-up
Diagnostic data:
Chest x-ray 03/04/2022-no pneumothorax, no acute mediastinal abnormalities, mild stable pleural-parenchymal scarring, lungs otherwise clear
Chest x-ray 07/19/2023-some widespread bilateral interstitial opacifications as well as possible small superimposed patchy right upper lobe airspace disease
Echocardiogram 05/25/2021-EF 50%, stage II diastolic dysfunction, PA systolic 30-35
Echocardiogram 02/13/2023-EF 50-55%, moderately dilated left atrium, no valvular disease, no change from 2021
CT chest 05/24/2021-increased interstitial markings with groundglass opacifications
CT chest 08/17/2021-resolution of bilateral interstitial infiltrates, stable lung nodules for several years
PFT 11/22/2022-FEV1 2.8-78%, FVC 6.8-82%, TLC 82%, RV 75%, DLCO 44%, DLCO/VA 50%
PFT 07/09/2023-FEV1 2.6-72%, FVC 4-82%, TLC 91%, RV 89%, DLCO 46%, DLCO/VA 64%
Immunoglobulin levels 05/25/2021-normal with exception of mildly decreased IgG-607
Subjective Data
-
Date of Service:
Date of Service: July 23, 2023
Chief Complaint: Pulmonary Follow Up
Subjective:
patient seen and examined, no acute events ON
at bedside
doing well on RA
Objective Data
Data Reviewed
Vital Signs / I&O / Oxygen:
Vital Signs
Temp Pulse Resp BP Pulse Ox
97.6 F 92 18 157/71 95
07/23/23 07:30 07/23/23 07:59 07/23/23 07:59 07/23/23 07:30 07/23/23 07:59
Intake and Output
07/22/23 07/23/23 07/24/23
06:59 06:59 06:59
Intake Total 1320 / 1320 1815 / 1815
Output Total 1070 / 1070 630 / 630
Balance 250 / 250 1185 / 1185
SaO2 95
Nasal Cannula flow liters per 2
minute
Physical Exam
General: Respiratory Distress (n), Comfortable and Other (no acute distress)
HEENT: Normocephalic, Anicteric and Moist Mucous Membranes
Cardiovascular: S1-S2, Regular Rhythm and Peripheral Edema (trace)
Respiratory: Clear, Non-Labored Respirations, Accessory Resp Muscle Use (n) and Stridor
GI: Soft, Non Distended and Non Tender
Neurology: Awake, Alert, Oriented, AO x 3, No Motor Deficits and Other ( decreased hearing)
Skin: Warm, Good Color, Cyanosis (n) and Jaundice (n)
Labs/Micro/Reports
Lab Data
07/23/23 07:13
07/23/23 07:13
Microbiology
07/21/23 07:08 Sputum Respiratory Culture - Final
07/21/23 07:08 Sputum Gram Stain - Final
07/19/23 19:18 Nose MRSA Screen - Final
No Methicillin Resistant Staphylococcus aureus isolated.
[2023-07-23] MEDS: ELIQUIS 2.5 MG PO (10:00)
[2023-07-23] MEDS: MIRALAX PO (10:00)
[2023-07-23] MEDS: MUCINEX 1200 MG PO (10:01)
[2023-07-23] MEDS: NEPTAZANE 50 MG PO (10:02)
[2023-07-23] MEDS: REFRESH EYE DROPS (PF) 1 DROPS BOTH EYES ×2 (10:03→12:02)
[2023-07-23] MEDS: NSS (PRESERVATIVE FREE) IV (10:03)
[2023-07-23] MEDS: LASIX 40 MG IV (10:04)
[2023-07-23] MEDS: FLUSH (NSS) 1 FLUSH IV ×2 (10:04→12:03)
[2023-07-23] MEDS: SIMBRINZA 1%-0.2% OPHTH SUSP 1 DROP RIGHT EYE (10:05)
[2023-07-23 11:06] VITALS: BP 127/64
[2023-07-23] MEDS: DUPHALAC/CHRONULAC PO (12:00)
[2023-07-23] MEDS: ZITHROMAX INFUSION 250 IV (12:02)
--- NOTE | 2023-07-23 12:02 | W.DCSUMMARY ---
Discharge Summary
Discharge Data
Date of Admission: 07/19/23
Date of Discharge: 07/23/23
-
Pending Results: No
Hospital Course
Hospital course:
Acute hypoxic respiratory failure
Acute on chronic diastolic heart failure
Acute kidney injury superimposed on stage IIIa chronic kidney disease
Acute on chronic obstructive pulmonary disease exacerbation
Paroxysmal atrial fibrillation and atrial flutter status post pulmonary vein isolation ablation x 2 in 2018, maze 2020
Status post biventricular permanent pacemaker placement in 2021
History of benign essential hypertension
Hyperlipidemia
Gastroesophageal reflux disease
Consults: Cardiology, pulmonology
Chest x-ray:
Some mild widespread bilateral interstitial opacities as well as possible small superimposed patchy right upper lobe alveolar opacity. Some differential diagnostic possibilities include pneumonitis or atypical edema
Echo:
Very technically difficult study
�Normal left ventricular chamber size. Normal left ventricular systolic
�function. Left ventricular ejection fraction is 50-55%. Normal regional wall
�motion. Mild concentric left ventricular hypertrophy.
�Pacer wire seen in right ventricle.
�Mild tricuspid regurgitation. Estimated pulmonary artery pressure of 30-35
�mmHg.
�Compared to the previous echo from Feb 2023, there is no significant change.
Hospital course:
83-year-old male with a past medical history of COPD, CHF, and atrial fibrillation on Eliquis was admitted for acute hypoxic respiratory failure secondary to acute CHF exacerbation as well as acute COPD exacerbation.
Patient was initially treated with BiPAP, and then weaned to 6 L of oxygen. He was seen in conjunction with pulmonology. He refused steroids because of his glaucoma. He was treated with bronchodilators.
Patient was seen in conjunction with cardiology. He was diuresed with IV Lasix.
After several days, he was weaned to room air. Home oxygen prescription eval was performed, he was 93% on room air at rest, 92% on room air with ambulation.
Patient does have a history of hypertension. His blood pressure was on the soft side. His lisinopril was discontinued. His rate was controlled, and in the low 60s. Cardiology stopped his metoprolol. He can continue amlodipine 10 mg daily upon
discharge.
Patient has acute kidney injury superimposed on chronic kidney disease, due to his heart failure. His creatinine upon admission was 1.8, and improved to 1.1 on the day of discharge.
Patient was seen in conjunction with PT, who recommended home care. He is medically stable and cleared by both cardiology and pulmonology for discharge. He will be discharged on Lasix 40 mg p.o. daily, Eliquis 5 mg twice a day, amlodipine 10 mg
daily. Again, lisinopril and metoprolol been discontinued. He has been instructed to follow-up with his primary care doctor in 1 week, as well as cardiology and pulmonology in the office. He needs to get a repeat BMP with his primary care doctor
in 1 week.
Disposition: Home with home care
Discharge planning: Required 40 minutes
Discharge Plan
-
Patient Disposition: Home with Home Care
Discharge Diagnosis/Procedures: Acute hypoxic respiratory failure, congestive heart failure, persistent atrial fibrillation, acute on chronic obstructive pulmonary disease exacerbation, bilateral interstitial opacifications, acute kidney injury
superimposed on stage III chronic kidney disease
Condition: Fair
Diet: 2 Gram Sodium
Activity: As tolerated
Driving Restrictions: As prior to admission
Blood Work: BMP in 1 week with your primary care provider or with Sabina Ellis
Specialty Instructions: Weigh Daily- Call MD for wt gain/loss 3 lbs overnight/5 lbs in 1 week
Referrals:
Yuli Ellis CRNP [Specified Professional Personl] - 07/29/23 2:20 pm
Mckinley Daley MD [Active] - in two to three weeks (Dr. June or ADMISSIONS MANAGER RN)
Kaitlynn Michelle CRNP [Family Provider] - in one week
Prescriptions:
New
polyethylene glycol 3350 17 gram/dose powder
17 g PO DAILY Qty: 510 0RF
Continued
lorazepam 0.5 MG tablet
0.5 mg PO Q6HPRN PRN (Reason: anxiety, sleep)
ascorbic acid (vitamin C) [Vitamin C] 500 MG tablet
500 mg PO DAILY Qty: 0
Eliquis 5 MG tablet
5 mg PO BID
cholecalciferol (vitamin D3) 1,000 UNITS tablet
1,000 units PO DAILY
simvastatin 20 MG tablet
20 mg PO QPM
albuterol sulfate 1 PUFF HFA aerosol inhaler
2 puff inhalation R Q4HPRN PRN (Reason: sob)
Refresh Optive Advanced (PF) 0.5-1-0.5 % Dropperette
1 drp BOTH EYES 5/D Qty: 0
Centrum Silver Men 300-600-300 mcg Tablet
1 tab PO DAILY
Simbrinza 1-0.2 % Drops,Suspension
1 drp RIGHT EYE BID
furosemide 40 mg tablet
40 mg PO DAILY
methazolamide 50 mg Tablet
50 mg PO BID
amlodipine [Norvasc] 10 mg Tablet
10 mg PO DAILY
Rhopressa 0.02 % Drops
1 drp BOTH EYES QPM
guaifenesin [Mucus Relief ER] 600 mg tablet extended release 12hr
600 mg PO DAILY
Discontinued
lisinopril 30 mg Tablet
30 mg PO DAILY
metoprolol succinate 50 mg tablet extended release 24 hr
50 mg PO BID
Discharge Orders:
Discharge Patient (As Directed); Ordered 07/23/23
Ordered By: Johnson Keenan
Discharge Date and Time
Discharge Date/Time: 07/23/23 13:49
--- NOTE | 2023-07-23 13:56 | CM ---
Received notification from unit that patient has been medically cleared for discharge. Placed a call to [facility] [place] who confirmed that patient will get a call and he is on their list. Per critical care unit nurse RN stated that patient weaned from o2.
== END 2023-07-23 13:49 | disposition home health service (06) | DRG 291 ==
LOC: 4 EAST ACU 12:18
PROVIDERS: Physician Assistant; ADMITTING PHYSICIAN Internal Medicine; ATTENDING PHYSICIAN Family Medicine; CONSULT PHYSICIAN Internal Medicine; CONSULT PHYSICIAN Internal Medicine Critical Care Medicine; EMERGENCY PHYSICIAN Emergency Medicine; FAMILY PHYSICIAN Nurse Practitioner Adult Health
DX: I13.0 Hypertensive heart and chronic kidney disease with heart failure and stage 1 through stage 4 chronic kidney disease, or unspecified chronic kidney disease (principal); I50.33 Acute on chronic diastolic (congestive) heart failure; J18.9 Pneumonia, unspecified organism; J96.01 Acute respiratory failure with hypoxia; J44.0 Chronic obstructive pulmonary disease with (acute) lower respiratory infection; N17.9 Acute kidney failure, unspecified; I48.19 Other persistent atrial fibrillation; K21.9 Gastro-esophageal reflux disease without esophagitis; E78.00 Pure hypercholesterolemia, unspecified; N18.32 Chronic kidney disease, stage 3b; Z87.891 Personal history of nicotine dependence; Z95.0 Presence of cardiac pacemaker
CPT/HCPCS: 71045; 80048; 80053; 83735; 83880; 84484; 85025; 85027; 87070; 87205; 87502; 87811; 93005; 93306; 94640; 94660; 96365; 97116; 97162; 97167; 97535; 99285

== ENCOUNTER → 2023-11-05 13:47 | Outpatient (REF) | payer OTHER, SELFPAY | LOC: HWRAD 13:47 | PROVIDERS: ATTENDING PHYSICIAN Internal Medicine Cardiovascular Disease; FAMILY PHYSICIAN Nurse Practitioner Adult Health | DX: I73.9 Peripheral vascular disease, unspecified (principal) | CPT/HCPCS: 93880 ==

== ENCOUNTER → 2023-12-25 10:48 | Outpatient (REF) | payer OTHER, SELFPAY | LOC: RAD 10:48 | PROVIDERS: ATTENDING PHYSICIAN Internal Medicine | DX: M54.50 Low back pain, unspecified (principal) | CPT/HCPCS: 72100; 74019 ==

== ENCOUNTER → 2024-02-16 11:37 | Outpatient (REF) | payer OTHER, SELFPAY | LOC: RAD 11:37 | PROVIDERS: ATTENDING PHYSICIAN Nurse Practitioner Adult Health | DX: R05.1 Acute cough (principal) | CPT/HCPCS: 71046 ==

== ENCOUNTER → 2024-04-27 15:26 | Outpatient (REF) | payer OTHER, SELFPAY | LOC: RAD 15:26 | PROVIDERS: ATTENDING PHYSICIAN Nurse Practitioner Adult Health | DX: R05.1 Acute cough (principal) | CPT/HCPCS: 71046 ==

== ENCOUNTER → 2024-05-14 08:29 | Outpatient (REF) | payer OTHER, SELFPAY | LOC: DHCBC/DCA 08:29 | PROVIDERS: ATTENDING PHYSICIAN Student in an Organized Health Care Education/Training Program; FAMILY PHYSICIAN Nurse Practitioner Adult Health | DX: R06.09 Other forms of dyspnea (principal) | CPT/HCPCS: 78452; 93017; A9500; J2785 ==

== ENCOUNTER → 2024-06-18 09:11 | Outpatient (REF) | payer OTHER, SELFPAY | LOC: HWRCS 09:11 | PROVIDERS: ATTENDING PHYSICIAN Student in an Organized Health Care Education/Training Program; FAMILY PHYSICIAN Nurse Practitioner Adult Health | DX: R06.09 Other forms of dyspnea (principal); I10 Essential (primary) hypertension; I48.21 Permanent atrial fibrillation; I50.30 Unspecified diastolic (congestive) heart failure | CPT/HCPCS: 93306 ==

== ENCOUNTER 2024-11-24 09:16 | Emergency (ER) | payer OTHER, SELFPAY ==
[2024-11-24 09:24] VITALS: BP 105/67
[2024-11-24 10:00] VITALS: BP 100/73
--- NOTE | 2024-11-24 10:04 | ED.GENMED ---
History of Present Illness
General
Chief Complaint: Chest Pain
Source: patient and significant other
Exam Limitations: none
Time Seen by Provider: 11/24/24 09:38
Nursing documentation reviewed up to this point in time: agreed with
History of Present Illness
History of Present Illness:
see mdm
Past History
Past History
ED Past Medical History: Arrthythmia (Paroxysmal Atrial fibrillation), CHF, CVA, HTN, Hypercholesterolemia and Other (Kidney stones)
ED Past Surgical History: Cardiac (Cardiac Ablation X 2, Cardioversion), Tonsilectomy and Urological
Social History
Tobacco: Former smoker (quit )
Alcohol: None
Drug: None
Personal:
Living: with family
Phy Exam
Physical Exam
Physical Exam:
GENERAL: Alert , in no apparent distress, very wekk appearing
EYE: pupils equal and reactive
NECK: Supple
ENT: o/p clr, mmm.
CARDIAC: Regular rate and rhythm .
chest wall: nontender
LUNGS: Clear breath sounds bilaterally, no acute respiratory distress, no wheezes/rales/rhonchi
ABDOMEN: Soft, without focal tenderness, no r/g, no cvat, normal bowel sounds
NEUROLOGICAL: Alert and oriented, no focal neuro deficits
SKIN: Warm and dry, skin intact.
MUSCULOSKELETAL: No edema, well perfused. neg tereso's sign
PSYCH: Normal and appropriate interaction.
Scores
Heart Score for Chest Pain Patients
STEMI patient?: No
History: Slightly or Non-Suspicious
ECG: Nonspecific Repolarization
Age: >/= 65 years
Risk Factors: >/= 3 Risk Factors or History of CAD
Troponin: </= Normal Limit
Heart Score for Chest Pain Patients: 5
Heart Score Risk: 20.3% MACE over next 6 weeks
Course
Orders/Labs/Results
Orders:
Orders
11/24/24 09:29
Electrocardiogram (*1) Urgent
Reason for Study: Chest Pain
EKG- Treatment ONCE
11/24/24 10:01
Ribs, Left 3 View W/PA Chest CR [CR Ribs-left 3 Vw W/pa Chest] Urgent
Comment:
Reason For Exam: L rib pain, cough
11/24/24 10:19
Complete Blood Count/With Diff Urgent
Comprehensive Metabolic Panel Urgent
D-Dimer Urgent
NT-proBNP Urgent
Troponin I Urgent
11/24/24 11:21
Amoxicillin 875 mg/Clav 125 mg [Augmentin 875 mg/125 mg] 1 tablet PO NOW STA
Azithromycin [Zithromax] 500 mg PO NOW STA
Abnormal Lab Results
11/24/24
10:19
RBC 3.79 L 10^6/uL
(4.70-6.10)
Hgb 11.9 L g/dL
(13.0-18.0)
Hct 35.2 L %
(39.0-52.0)
MCH 31.4 H pg
(27.0-31.0)
Plt Count 95 L 10^3/uL
(130-400)
MPV 10.5 H fL
(7.4-10.4)
Absolute Lymphs (auto) 0.5 L 10^3/uL
(1.2-3.4)
Absolute Monos (auto) 1.3 H 10^3/uL
(0.1-0.6)
Neutrophils % 76.3 H %
(42.2-75.2)
Lymphocytes % 6.0 L %
(20.5-51.1)
Monocytes % 16.5 H %
(1.7-9.3)
Chloride 114 H mmol/L
(98-107)
Carbon Dioxide 18 L mmol/L
(22-30)
BUN 21 H mg/dl
(9-20)
Creatinine 1.5 H mg/dL
(0.7-1.3)
Glucose 108 H mg/dl
(70-99)
Total Protein 5.8 L g/dl
(6.3-8.2)
11/24/24 10:19
11/24/24 10:19
Vital Signs
Initial and Last Documented VS:
Initial Vital Signs
Temp Pulse Resp BP Pulse Ox
36.9 C 79 16 105/67 99
11/24/24 09:24 11/24/24 09:24 11/24/24 09:24 11/24/24 09:24 11/24/24 09:24
Last Documented Vital Signs
Temp Pulse Resp BP Pulse Ox
36.9 C 60 23 116/70 98
11/24/24 09:24 11/24/24 12:11 11/24/24 11:30 11/24/24 12:11 11/24/24 12:11
MDM/Problems Addressed
Differential Diagnosis Includes:
see MDM
MDM/Problems Addressed:
Note:
CHIEF COMPLAINT(S)
Pain on the left side of the chest associated with breathing, exacerbated by lying on the side.
HISTORY OF PRESENT ILLNESS
The patient is an 84-year-old female with a history of lung disease and use of anticoagulant therapy due to atrial fibrillation, presenting with pain on the left side of the chest for the past few days. The pain is described as exacerbated by deep
breathing and lying on the side. The patient reports slight relief with oral acetaminophen at night. he suspects the pain might be due to a possible rib injury from coughing or accidental trauma. The patient has had a chronic cough and congestion
for a long time, which has been treated but continues despite these interventions.
he confirmed that there has been no escalation in the use of his inhaler, which he uses normally. Recent blood thinners (apixaban) were taken today, and he reports good compliance with his medication regimen. The patient also mentions he has a
[employer] pacemaker due to previous episodes of atrial fibrillation, managed repeatedly with ablations.
PHYSICAL EXAM
- Respiratory: Pain localized to the left chest area, with breathing; no palpable tenderness
normla skin
cv: regular, no edema
- No evidence of abdominal tenderness on the examination.
- Nursing notes reviewed and vital signs reviewed.
PROBLEM LIST
Acute:
- Left-sided chest pain
Chronic:
- Interstitial lung disease
- Atrial fibrillation
- Use of anticoagulant (apixaban)
PLAN
- Order chest X-ray including rib views to assess for any fractures or underlying pulmonary issues.
- Conduct blood tests to evaluate heart enzyme levels to rule out myocardial infarction.
- Patient to continue managing pain with acetaminophen as needed.
DIFFERENTIAL DIAGNOSIS
The Differential Diagnosis includes, in no particular order and is not limited to:
- Costochondritis
- Rib fracture
- Pulmonary embolism
- Pleuritis
- Pneumonia
- Acute myocardial infarction
- Angina
- Chronic obstructive pulmonary disease exacerbation
- Pulmonary fibrosis progression
- Muscle strain
pt's cxr shows subtle pna and small pleural effusion L
with symptoms of cough/pain this seems reasonable to explain symptmos
he is compliant with eliquis, d dimer was neg
pulse ox normal
able to trial outpatient abx
return precautions
incentive spirometer
*Pulse Oximetry
SaO2: 99
Oxygen Mode of Delivery: Room air
*Critical Care Note
Total Time (30-74mins, 75-104mins- exclusive of procedures): Not Applicable
ED Attending Note
-
Portions of this chart may have been created with voice recognition software.� Occasional wrong word or��sound alike� substitutions may have occurred due to the inherent limitations of voice recognition software.
Discharge Plan
Departure
Patient Disposition: Home (Routine Discharge)
Date of Disposition: 11/24/24
Time of Disposition: 11:23
Patient with high blood pressure during this ER visit?: No
Condition: Fair
Covid-19: Not Applicable
Discharge Problem:
Pneumonia, Pleural effusion
Instructions: Pleural effusion - Discharge instructions, Pneumonia in adults - Discharge instructions
Prescriptions:
New
amoxicillin-pot clavulanate 875-125 mg tablet
1 tab PO BID Qty: 14 0RF
azithromycin [Zithromax] 250 mg tablet
250 mg PO DAILY Qty: 4 0RF
No Action
lorazepam 0.5 MG tablet
0.5 mg PO Q6HPRN PRN (Reason: anxiety, sleep)
ascorbic acid (vitamin C) [Vitamin C] 500 MG tablet
500 mg PO DAILY Qty: 0
Eliquis 5 MG tablet
5 mg PO BID
cholecalciferol (vitamin D3) 1,000 UNITS tablet
1,000 units PO DAILY
simvastatin 20 MG tablet
20 mg PO QPM
albuterol sulfate 1 PUFF HFA aerosol inhaler
2 puff inhalation R Q4HPRN PRN (Reason: sob)
Refresh Optive Advanced (PF) 0.5-1-0.5 % Dropperette
1 drp BOTH EYES 5/D Qty: 0
Centrum Silver Men 300-600-300 mcg Tablet
1 tab PO DAILY
Simbrinza 1-0.2 % Drops,Suspension
1 drp RIGHT EYE BID
furosemide 40 mg tablet
40 mg PO DAILY
methazolamide 50 mg Tablet
50 mg PO BID
amlodipine [Norvasc] 10 mg Tablet
10 mg PO DAILY
Rhopressa 0.02 % Drops
1 drp BOTH EYES QPM
guaifenesin [Mucus Relief ER] 600 mg tablet extended release 12hr
600 mg PO DAILY
polyethylene glycol 3350 17 gram/dose powder
17 g PO DAILY Qty: 510 0RF
Referrals:
India Mast MD [Family Provider, [facility]] - Follow up in 1 week
Activity Restrictions/Additional Instructions:
You have a subtle amount of fluid in the pleural space on your left side and a small pneumonia. Please take Augmentin twice a day for 7 days (you can take the second dose tonight) and Zithromax once a day for 4 days starting tomorrow
For pain you can use 2 extra strength Tylenol 2-3 times a day as needed. Do not exceed this amount in a 24-hour period.
Make sure to take deep breaths by using the incentive spirometer every 2 hours while awake.
Follow-up for repeat chest x-ray imaging in 2 to 3 weeks to ensure resolution of this. Return for worsening symptoms like fever, shortness of breath, worsening pain, passing out etc.
Interventions
Interventions:
*Risk Screen - Suicide Last Done: 11/24/24 10:21
*General Assessment Last Done: 11/24/24 10:21
*Neglect/Abuse Screening Last Done: 11/24/24 10:21
*ED- Fall Risk Assessment Last Done: 11/24/24 10:21
*ED COVID-19 Vaccine History Last Done: 11/24/24 10:21
*Nursing Disposition Last Done: 11/24/24 12:11
ED- Cardiac Assessment Last Done: 11/24/24 11:00
Discharge Date and Time
Discharge Date/Time: 11/24/24 12:17
Print Language: SERBIAN
[2024-11-24 10:10] VITALS: BMI 25.2
[2024-11-24 10:35] VITALS: BP 100/73
[2024-11-24 10:40] LABS: % Basophils 0.3 % (0-2); % Eosinophils 0.4 % (0-6); % Immature Granulocytes 0.5 % (0-0.5); % Monocytes 16.5 % (1.7-9.3); % Neutrophils 76.3 % (42.2-75.2); Absolute Lymphocytes 0.5 10^3/uL (1.2-3.4); Absolute Monocytes 1.3 10^3/uL (0.1-0.6); Hematocrit 35.2 % (39.0-52.0); Hemoglobin 11.9 g/dL (13.0-18.0); Mean Corp Hgb Conc. 33.8 g/dL (33.0-37.0); Mean Corpuscular Hgb 31.4 pg (27.0-31.0); Mean Corpuscular Volume 92.9 fL (80.0-94.0); Nucleated Red Blood Cells % 0 % (-); Red Blood Cell Count 3.79 10^6/uL (4.70-6.10); Red Cell Dist. Width 13.8 % (11.5-14.5); White Blood Cell Count 7.8 10^3/uL (4.8-10.8)
[2024-11-24 10:48] LABS: ALT (SGPT) 18 U/L (0-50); AST (SGOT) 18 U/L (17-59); Albumin 3.7 g/dl (3.5-5.0); Alkaline Phosphatase 60 U/L (38-126); Blood Urea Nitrogen 21 mg/dl (9-20); Calcium 8.4 mg/dl (8.4-10.2); Carbon Dioxide 18 mmol/L (22-30); Chloride 114 mmol/L (98-107); Estimated Creatinine Clearance 47 ml/min; Glucose 108 mg/dl (70-99); Potassium 3.9 mmol/L (3.5-5.1); Sodium 139 mmol/L (135-145); Total Protein 5.8 g/dl (6.3-8.2); eGFR 46.19
[2024-11-24 10:54] LABS: NT-proBNP 2270 pg/ml; Troponin I < 0.012 ng/ml
[2024-11-24 11:00] VITALS: BP 116/70
[2024-11-24] MEDS: ZITHROMAX 500 MG PO (11:46)
[2024-11-24] MEDS: AUGMENTIN 875 MG/125 MG 1 TABLET PO (11:46)
[2024-11-24 12:11] VITALS: BP 116/70
[2024-11-24 12:22] LABS: Mean Platelet Volume 10.5 fL (7.4-10.4); Platelet Count 95 10^3/uL (130-400)
== END 2024-11-24 12:17 | disposition home or self-care (01) ==
LOC: EMR 09:16
PROVIDERS: Physician Assistant; EMERGENCY PHYSICIAN Emergency Medicine; FAMILY PHYSICIAN Family Medicine
DX: R07.89 Other chest pain (principal); J90 Pleural effusion, not elsewhere classified; I48.0 Paroxysmal atrial fibrillation; I11.0 Hypertensive heart disease with heart failure; I50.9 Heart failure, unspecified; I25.10 Atherosclerotic heart disease of native coronary artery without angina pectoris; E78.00 Pure hypercholesterolemia, unspecified; Z79.01 Long term (current) use of anticoagulants; Z86.73 Personal history of transient ischemic attack (TIA), and cerebral infarction without residual deficits; Z87.442 Personal history of urinary calculi; Z87.891 Personal history of nicotine dependence; Z95.0 Presence of cardiac pacemaker; J18.9 Pneumonia, unspecified organism
CPT/HCPCS: 99283; 71101; 80053; 83880; 84484; 85025; 85379; 93005

== ENCOUNTER 2024-11-27 08:28 | Emergency (ER) | payer OTHER, SELFPAY ==
[2024-11-27] VITALS (8 sets, daily range): BP systolic 101–112; BP diastolic 62–86; BMI 25.8
--- NOTE | 2024-11-27 09:27 | ED.GENMED ---
History of Present Illness
General
Chief Complaint: Breathing Problem
Source: patient and spouse
Exam Limitations: none
Time Seen by Provider: 11/27/24 08:40
Nursing documentation reviewed up to this point in time: agreed with
History of Present Illness
History of Present Illness:
Patient diagnosed with pneumonia 4 days ago in ED and started on Augmentin/Z-Miguel, presents to ED secondary to worsening shortness of breath at rest, but worse with exertion, along with decreased appetite and diarrhea. Denies fever or chills.
Patient reports increased coughing episodes. Denies chest pain. Denies abdominal pain. Denies headache. Denies dizziness.
Past History
Past History
ED Past Medical History: Arrthythmia (Paroxysmal Atrial fibrillation), CHF, CVA, HTN, Hypercholesterolemia and Other (Kidney stones)
ED Past Surgical History: Cardiac (Cardiac Ablation X 2, Cardioversion), Tonsilectomy and Urological
Social History
Tobacco: Former smoker (quit ')
Alcohol: None
Drug: None
Personal:
Living: with family
Review of Systems
Review of Systems
Allergies reviewed?: Yes
All Other Systems: ROS reviewed and negative except as documented in HPI and ROS
Constitutional: Reports no symptoms; Denies fever
EENT: Reports no symptoms
Respiratory: Reports cough and trouble breathing
Cardiac: Reports no symptoms
ABD/GI: Reports no symptoms
Musculoskeletal: Reports no symptoms
Skin: Reports no symptoms
Neurological: Reports no symptoms
Phy Exam
Physical Exam
Physical Exam:
Physical Exam
General: no apparent distress, not acutely ill. afebrile
Head: nc/at. eomi
Neck: supple. normal range of motion. no jvd.
Heart: s1/s2 regular rate and rhythm, no murmur.
Lungs: no acute respiratory distress. clear bilaterally, but diminished
Abdomen: normal bowel sounds. not tender.
Neuro: alert and oriented x 3. no focal neurological deficits
Skin: no rash
Psychiatric: well kept. interactive and cooperative
Extremities: no edema. no calf tenderness.
Scores
Heart Failure Risk
Heart Failure Risk Score: Not Applicable
Course
Orders/Labs/Results
Orders:
Orders
11/27/24 09:19
CT Chest W/o Iv Contrast Urgent
Comment:
Reason For Exam: cough/sob
11/27/24 09:49
Complete Blood Count/With Diff Urgent
Comprehensive Metabolic Panel Urgent
Magnesium Urgent
NT-proBNP Urgent
Comment: ADD ON
11/27/24 10:30
Add On- LAB Urgent
Tests Added?: ProBNP
0.9% Sodium Chloride 250 ml [Nss] 250 ml IV BOLUS
11/27/24 13:25
Case Management Consult ONCE
Case Management Consult: VN/Home Care
Abnormal Lab Results
11/27/24
09:49
RBC 3.58 L 10^6/uL
(4.70-6.10)
Hgb 11.3 L g/dL
(13.0-18.0)
Hct 33.2 L %
(39.0-52.0)
MCH 31.6 H pg
(27.0-31.0)
Plt Count 101 L 10^3/uL
(130-400)
Absolute Lymphs (auto) 0.3 L 10^3/uL
(1.2-3.4)
Absolute Monos (auto) 0.7 H 10^3/uL
(0.1-0.6)
Neutrophils % 83.6 H %
(42.2-75.2)
Lymphocytes % 4.2 L %
(20.5-51.1)
Monocytes % 10.5 H %
(1.7-9.3)
Chloride 116 H mmol/L
(98-107)
Carbon Dioxide 16 L mmol/L
(22-30)
BUN 24 H mg/dl
(9-20)
Creatinine 1.5 H mg/dL
(0.7-1.3)
Glucose 119 H mg/dl
(70-99)
Calcium 8.3 L mg/dl
(8.4-10.2)
ALT 79 H U/L
(0-50)
Total Protein 5.7 L g/dl
(6.3-8.2)
11/27/24 09:49
11/27/24 09:49
Vital Signs
Initial and Last Documented VS:
Initial Vital Signs
Temp Pulse Resp BP Pulse Ox
98.3 F 72 18 106/64 97
11/27/24 08:36 11/27/24 08:36 11/27/24 08:36 11/27/24 08:36 11/27/24 08:36
Last Documented Vital Signs
Temp Pulse Resp BP Pulse Ox
97.5 F 60 20 112/86 98
11/27/24 09:53 11/27/24 12:45 11/27/24 12:00 11/27/24 12:00 11/27/24 12:45
MDM/Problems Addressed
MDM/Problems Addressed:
CT chest without contrast ordered, secondary to continued symptoms. CT report reviewed and discussed with patient and spouse. Patient otherwise remains afebrile, hemodynamically stable, and without any acute respiratory distress. Patient has been
able to ambulate independently on multiple occasions in ED without any acute respiratory distress nor desaturation. After discussion, decision made to discharge patient home with recommendation to complete already prescribed antibiotics along with
close follow-up with his metallographer as an outpatient, with consideration of return to ED with worsening symptoms. Patient will be evaluated by case management and set up for home VN evaluation. Patient and spouse expressed understanding at time
of discharge.
*Pulse Oximetry
SaO2: 95
Oxygen Mode of Delivery: Room air
Patient hypoxic: no
*Critical Care Note
Total Time (30-74mins, 75-104mins- exclusive of procedures): Not Applicable
ED Attending Note
-
Portions of this chart may have been created with voice recognition software.� Occasional wrong word or��sound alike� substitutions may have occurred due to the inherent limitations of voice recognition software.
Discharge Plan
Departure
Patient Disposition: Home (Routine Discharge)
Date of Disposition: 11/27/24
Time of Disposition: 13:51
Patient with high blood pressure during this ER visit?: No
Condition: Fair
Discharge Problem:
Pneumonia
Instructions: Pneumonia in adults - Discharge instructions
Prescriptions:
No Action
lorazepam 0.5 MG tablet
0.5 mg PO Q6HPRN PRN (Reason: anxiety, sleep)
ascorbic acid (vitamin C) [Vitamin C] 500 MG tablet
500 mg PO DAILY Qty: 0
Eliquis 5 MG tablet
5 mg PO BID
cholecalciferol (vitamin D3) 1,000 UNITS tablet
1,000 units PO DAILY
simvastatin 20 MG tablet
20 mg PO QPM
albuterol sulfate 1 PUFF HFA aerosol inhaler
2 puff inhalation R Q4HPRN PRN (Reason: sob)
Refresh Optive Advanced (PF) 0.5-1-0.5 % Dropperette
1 drp BOTH EYES 5/D Qty: 0
Centrum Silver Men 300-600-300 mcg Tablet
1 tab PO DAILY
Simbrinza 1-0.2 % Drops,Suspension
1 drp RIGHT EYE BID
furosemide 40 mg tablet
40 mg PO DAILY
methazolamide 50 mg Tablet
50 mg PO BID
amlodipine [Norvasc] 10 mg Tablet
10 mg PO DAILY
Rhopressa 0.02 % Drops
1 drp BOTH EYES QPM
guaifenesin [Mucus Relief ER] 600 mg tablet extended release 12hr
600 mg PO DAILY
polyethylene glycol 3350 17 gram/dose powder
17 g PO DAILY Qty: 510 0RF
Referrals:
Mckinley Daley MD [Active, Pulmonary Medicine]
India Limon MD [Family Provider, Internal Medicine]
Activity Restrictions/Additional Instructions:
As discussed, please follow-up with your primary care physician and/or metallographer for reevaluation. Please return to ED with worsening symptoms. Until then, please continue already prescribed antibiotics and increase fluid intake.
Interventions
Interventions:
*Risk Screen - Suicide Last Done: 11/27/24 08:36
*General Assessment Last Done: 11/27/24 08:36
*Neglect/Abuse Screening Last Done: 11/27/24 08:36
*ED- Fall Risk Assessment Last Done: 11/27/24 09:53
*ED COVID-19 Vaccine History Last Done: 11/27/24 09:53
*Nursing Disposition Last Done: 11/27/24 14:08
ED- Cardiac Assessment Last Done: 11/27/24 09:53
ED- Pulmonary Assessment Last Done: 11/27/24 09:53
Discharge Date and Time
Discharge Date/Time: 11/27/24 14:13
Print Language: ARMENIAN
[2024-11-27 09:57] LABS: % Basophils 0.3 % (0-2); % Eosinophils 1.1 % (0-6); % Immature Granulocytes 0.3 % (0-0.5); % Lymphocytes 4.2 % (20.5-51.1); % Monocytes 10.5 % (1.7-9.3); % Neutrophils 83.6 % (42.2-75.2); Absolute Eosinophils 0.1 10^3/uL (0-0.7); Absolute Lymphocytes 0.3 10^3/uL (1.2-3.4); Absolute Monocytes 0.7 10^3/uL (0.1-0.6); Absolute Neutrophils 5.9 10^3/uL (1.4-6.5); Hematocrit 33.2 % (39.0-52.0); Hemoglobin 11.3 g/dL (13.0-18.0); Mean Corpuscular Hgb 31.6 pg (27.0-31.0); Mean Corpuscular Volume 92.7 fL (80.0-94.0); Mean Platelet Volume 9.6 fL (7.4-10.4); Nucleated Red Blood Cells % 0 % (-); Platelet Count 101 10^3/uL (130-400); Red Blood Cell Count 3.58 10^6/uL (4.70-6.10); White Blood Cell Count 7.1 10^3/uL (4.8-10.8)
[2024-11-27 10:25] LABS: ALT (SGPT) 79 U/L (0-50); AST (SGOT) 47 U/L (17-59); Albumin 3.5 g/dl (3.5-5.0); Alkaline Phosphatase 56 U/L (38-126); Blood Urea Nitrogen 24 mg/dl (9-20); Calcium 8.3 mg/dl (8.4-10.2); Carbon Dioxide 16 mmol/L (22-30); Chloride 116 mmol/L (98-107); Estimated Creatinine Clearance 47 ml/min; Glucose 119 mg/dl (70-99); Potassium 3.9 mmol/L (3.5-5.1); Sodium 142 mmol/L (135-145); Total Bilirubin 0.7 mg/dl (0.2-1.3); Total Protein 5.7 g/dl (6.3-8.2); eGFR 46.19
[2024-11-27] MEDS: NSS 250 IV (10:47)
[2024-11-27 12:08] LABS: NT-proBNP 2440 pg/ml
--- NOTE | 2024-11-27 14:23 | CM ---
process control manager reviewed patient's chart and patient resides with his spouse a 2 story home with 2 steps to enter, patient is independent with adl's and ambulation, no dme, patient has had [facility] visiting nurses in past, per ED staff patient has left
the rig manager reached out to patient by phone but there is no answer.
Plan; Home with spouse.
PCP: Dr Michelle
Pharmacy: [facility]
== END 2024-11-27 14:13 | disposition home or self-care (01) ==
LOC: EMR 08:28
PROVIDERS: EMERGENCY PHYSICIAN Emergency Medicine; FAMILY PHYSICIAN Internal Medicine
DX: J18.9 Pneumonia, unspecified organism (principal); E78.00 Pure hypercholesterolemia, unspecified; I11.0 Hypertensive heart disease with heart failure; I50.9 Heart failure, unspecified; I48.0 Paroxysmal atrial fibrillation; Z86.73 Personal history of transient ischemic attack (TIA), and cerebral infarction without residual deficits; Z87.891 Personal history of nicotine dependence
CPT/HCPCS: 99284; 71250; 80053; 83735; 83880; 85025

== ENCOUNTER → 2024-12-21 09:39 | Outpatient (REF) | payer OTHER, SELFPAY | LOC: RAD 09:39 | PROVIDERS: ATTENDING PHYSICIAN Nurse Practitioner Adult Health | DX: J18.9 Pneumonia, unspecified organism (principal) | CPT/HCPCS: 71046 ==

== ENCOUNTER 2025-05-16 11:58 | Emergency (ER) | payer OTHER, SELFPAY ==
[2025-05-16 12:04] VITALS: BP 138/84
[2025-05-16 12:21] LABS: Hematocrit 35.4 % (39.0-52.0); Hemoglobin 12.2 g/dL (13.0-18.0); Mean Corp Hgb Conc. 34.5 g/dL (33.0-37.0); Mean Corpuscular Volume 95.7 fL (80.0-94.0); Nucleated Red Blood Cells % 0 % (-); Platelet Count 195 10^3/uL (130-400); Red Cell Dist. Width 13.3 % (11.5-14.5)
[2025-05-16 12:58] LABS: ALT (SGPT) 37 U/L (0-50); AST (SGOT) 31 U/L (17-59); Albumin 3.7 g/dl (3.5-5.0); Alkaline Phosphatase 78 U/L (38-126); Blood Urea Nitrogen 25 mg/dl (9-20); Calcium 9.5 mg/dl (8.4-10.2); Carbon Dioxide 23 mmol/L (22-30); Chloride 108 mmol/L (98-107); Glucose 102 mg/dl (70-99); Potassium 4.0 mmol/L (3.5-5.1); Sodium 135 mmol/L (135-145); Total Protein 6.4 g/dl (6.3-8.2); eGFR 45.91
[2025-05-16 15:26] VITALS: BP 141/91
--- NOTE | 2025-05-16 15:26 | ED.GENMED ---
History of Present Illness
General
Chief Complaint: Fall
Time Seen by Provider: 05/16/25 13:47
History of Present Illness
History of Present Illness:
75-year-old male with past medical history of A-fib on Eliquis, hypertension, glaucoma who presents after a fall 2 days ago where he hit his left chest and head against a wall. Denies loss of consciousness. Primary care physician sent him in for
to rule out any bleeding and rib fractures. He denies any associated symptoms such as nausea vomiting, headache, shortness of breath.
Past History
Past History
ED Past Medical History: Arrthythmia (Paroxysmal Atrial fibrillation), CHF, CVA, HTN, Hypercholesterolemia and Other (Kidney stones)
ED Past Surgical History: Cardiac (Cardiac Ablation X 2, Cardioversion), Tonsilectomy and Urological
Social History
Tobacco: Former smoker ()
Alcohol: None
Drug: None
Personal:
Living: with family
Phy Exam
General Physical Exam
General Presentation: well appearing and no apparent distress
General Skin: warm and dry
General Habitus: normal
General Mental: alert
General Hydration: appears well hydrated
ENT Exam
ENT Exam: EOMI, pharynx normal, neck supple and normocephalic
Eye Exam
Eye Exam: PERRL, cornea clear and conjunctiva normal
Cardiovascular Exam
Cardiovascular Exam: regular rate/rhythm, no edema, no murmur and normal peripheral pulses
Pulmonary Exam
Pulmonary Exam: lungs clear, no respiratory distress, no rales, no crackles, no rhonchi, no stridor, no wheezing and no cough
Gastrointestinal Exam
Gastrointestinal Exam: normal bowel sounds, non tender, soft, no organomegaly, no pulsatile mass and non distended
Neurological Exam
Neurological Exam: alert, oriented x3, no motor deficits and speech normal
Musculoskeletal Exam
Musculoskeletal Exam: full ROM, no edema and other (left chest wall pain)
Skin Exam
Skin Exam: normal color, warm/dry, no rash and no petechia
Psychiatric Exam
Psychiatric Exam: normal mood/affect
Course
Orders/Labs/Results
Orders:
Orders
05/16/25 12:08
Ribs, Right 3 View W/PA Chest [CR Ribs-right 3 Vw W/pa Chest*] Urgent
Comment: feeling tired
Reason For Exam: fall and landed on right side
05/16/25 12:13
Complete Blood Count/With Diff Urgent
Comprehensive Metabolic Panel Urgent
Abnormal Lab Results
05/16/25
12:13
RBC 3.70 L 10^6/uL
(4.70-6.10)
Hgb 12.2 L g/dL
(13.0-18.0)
Hct 35.4 L %
(39.0-52.0)
MCV 95.7 H fL
(80.0-94.0)
MCH 33.0 H pg
(27.0-31.0)
Absolute Lymphs (auto) 0.6 L 10^3/uL
(1.2-3.4)
Absolute Monos (auto) 1.1 H 10^3/uL
(0.1-0.6)
Lymphocytes % 8.6 L %
(20.5-51.1)
Monocytes % 14.4 H %
(1.7-9.3)
Chloride 108 H mmol/L
(98-107)
BUN 25 H mg/dl
(9-20)
Creatinine 1.5 H mg/dL
(0.7-1.3)
Glucose 102 H mg/dl
(70-99)
05/16/25 12:13
05/16/25 12:13
Vital Signs
Initial and Last Documented VS:
Initial Vital Signs
Temp Pulse Resp BP Pulse Ox
36.7 C 74 16 138/84 98
05/16/25 12:04 05/16/25 12:04 05/16/25 12:04 05/16/25 12:04 05/16/25 12:04
Last Documented Vital Signs
Temp Pulse Resp BP Pulse Ox
36.7 C 83 18 141/91 99
05/16/25 12:04 05/16/25 15:26 05/16/25 15:26 05/16/25 15:26 05/16/25 15:34
MDM/Problems Addressed
Differential Diagnosis Includes:
Rib x-rays show right 9th and 10th rib fractures consistent with area of pain. Discussed treatment for rib fractures consists of good pain control and continued deep breathing and pulmonary toileting. CT scan of head was ordered as patient is on
anticoagulation and did strike his head. Prior to this being completed patient requested to leave as he would like to return home for his eyedrops. I offered to order the eyedrops for him to have here but he states that he would like to take his
own prescription. His was also stating that she has a medication change to take. I explained the risks of a missed intracranial hemorrhage to have which he verbalizes understanding and he insists on discharge. Given that his CBC showed
hemoglobin improved from prior and he remained hemodynamically stable throughout his ER course likelihood of life-threatening hemorrhage is low. Return precautions were discussed in detail.
*Pulse Oximetry
SaO2: 99
Oxygen Mode of Delivery: Room air
Patient hypoxic: no
*Critical Care Note
Total Time (30-74mins, 75-104mins- exclusive of procedures): Not Applicable
ED Attending Note
-
Portions of this chart may have been created with voice recognition software.� Occasional wrong word or��sound alike� substitutions may have occurred due to the inherent limitations of voice recognition software.
Discharge Plan
Departure
Patient Disposition: Home (Routine Discharge)
Date of Disposition: 05/16/25
Time of Disposition: 15:14
Patient with high blood pressure during this ER visit?: No
Discharge Problem:
Closed rib fracture
Instructions: Rib fracture or bruised rib - ED (DC)
Prescriptions:
No Action
lorazepam 0.5 MG tablet
0.5 mg PO Q6HPRN PRN (Reason: anxiety, sleep)
ascorbic acid (vitamin C) [Vitamin C] 500 MG tablet
500 mg PO DAILY Qty: 0
Eliquis 5 MG tablet
5 mg PO BID
cholecalciferol (vitamin D3) 1,000 UNITS tablet
1,000 units PO DAILY
simvastatin 20 MG tablet
20 mg PO QPM
albuterol sulfate 1 PUFF HFA aerosol inhaler
2 puff inhalation R Q4HPRN PRN (Reason: sob)
Refresh Optive Advanced (PF) 0.5-1-0.5 % Dropperette
1 drp BOTH EYES 5/D Qty: 0
Centrum Silver Men 300-600-300 mcg Tablet
1 tab PO DAILY
Simbrinza 1-0.2 % Drops,Suspension
1 drp RIGHT EYE BID
furosemide 40 mg tablet
40 mg PO DAILY
methazolamide 50 mg Tablet
50 mg PO BID
amlodipine [Norvasc] 10 mg Tablet
10 mg PO DAILY
Rhopressa 0.02 % Drops
1 drp BOTH EYES QPM
guaifenesin [Mucus Relief ER] 600 mg tablet extended release 12hr
600 mg PO DAILY
polyethylene glycol 3350 17 gram/dose powder
17 g PO DAILY Qty: 510 0RF
Referrals:
Kaitlynn Michelle CRNP [Family Provider, Internal Medicine]
Activity Restrictions/Additional Instructions:
Take Tylenol Motrin for pain. Can use [id number] lidocaine patches. Follow-up with your primary care physician. The pain should begin to improve within 2 weeks. Is important to continue to take deep breaths and encourage coughing as this
will prevent pneumonia.
While here a CT scan of your head was ordered however you have chosen to leave the department prior to this being completed. If you begin to develop any blurry vision, dizziness, severe headaches you should return to the emergency room to rule out
any life-threatening bleeding.
Interventions
Interventions:
*Risk Screen - Suicide Last Done: 05/16/25 11:59
*General Assessment Last Done: 05/16/25 12:04
*Neglect/Abuse Screening Last Done: 05/16/25 11:59
*ED COVID-19 Vaccine History Last Done: 05/16/25 12:04
[facility] Fall Risk Assessment Tool Last Done: 05/16/25 12:04
*Nursing Disposition Last Done: 05/16/25 15:26
ED-Musculoskeletal Assessment Last Done: 05/16/25 14:03
ED- Neurological Assessment Last Done: 05/16/25 14:03
ED-Skin Assessment Last Done: 05/16/25 14:03
Discharge Date and Time
Discharge Date/Time: 05/16/25 15:26
Print Language: WELSH
== END 2025-05-16 15:26 | disposition home or self-care (01) ==
LOC: EMR 11:58
PROVIDERS: Student in an Organized Health Care Education/Training Program; EMERGENCY PHYSICIAN Emergency Medicine; FAMILY PHYSICIAN Nurse Practitioner Adult Health
DX: S22.41XA Multiple fractures of ribs, right side, initial encounter for closed fracture (principal); W01.198A Fall on same level from slipping, tripping and stumbling with subsequent striking against other object, initial encounter; I48.0 Paroxysmal atrial fibrillation; I11.0 Hypertensive heart disease with heart failure; I50.9 Heart failure, unspecified; E78.00 Pure hypercholesterolemia, unspecified; H40.9 Unspecified glaucoma; Z79.01 Long term (current) use of anticoagulants; Z86.73 Personal history of transient ischemic attack (TIA), and cerebral infarction without residual deficits; Z87.891 Personal history of nicotine dependence
CPT/HCPCS: 99283; 71101; 80053; 85025

== ENCOUNTER 2025-05-30 12:57 | Emergency (ER) | payer OTHER, SELFPAY ==
[2025-05-30 13:17] VITALS: BP 130/80
--- NOTE | 2025-05-30 14:22 | ED.GENMED ---
History of Present Illness
General
Chief Complaint: Head Injury
Source: patient and spouse
Exam Limitations: none
Time Seen by Provider: 05/30/25 14:10
History of Present Illness
History of Present Illness:
85-year-old male who presents for CT of the head as advised by his doctor. The patient was here after fall that occurred May 14. He was awaiting a CT of the head but decided to leave due to long wait. He was diagnosed with some rib fractures.
The patient states over the next few days he developed a headache. He has had a headache last 5 to 6 days. He called his primary doctor who advised him to come back for the CAT scan in light of his recent fall. The patient spouse states that he
does have a lot of medical conditions and has been somewhat unsteady on his feet over time. Patient does report a little bit of right trapezius pain but no midline neck pain. No vomiting. No vision changes. History of glaucoma. He is
anticoagulated
Past History
Past History
ED Past Medical History: Arrthythmia (Paroxysmal Atrial fibrillation), CHF, CVA, HTN, Hypercholesterolemia and Other (Kidney stones, glaucoma)
ED Past Surgical History: Cardiac (Cardiac Ablation X 2, Cardioversion), Tonsilectomy and Urological
Social History
Tobacco: Former smoker ()
Alcohol: None
Drug: None
Personal:
Living: with family
Phy Exam
Physical Exam
Physical Exam:
CONSTITUTIONAL Patient alert and oriented to person, place and time. Well-appearing. Vital signs reviewed.
HEAD atraumatic, normocephalic.
EYES eyelids normal to inspection, Extraocular muscles intact, Conjunctiva normal, Sclera normal.
NECK normal range of motion, Trachea midline, no jugular venous distention. No midline tenderness.
RESPIRATORY CHEST No respiratory distress noted, Chest expansion equal
ABDOMEN abdomen nontender, Bowel sounds normal. No distention.
BACK normal inspection, no obvious deformities, no midline tenderness. There is healing ecchymosis noted to the right flank
UPPER EXTREMITY range of motion normal, Motor strength normal, no cyanosis, no edema.
LOWER EXTREMITY range of motion normal, Motor strength normal, no cyanosis, no edema.
NEURO Speech normal, No focal motor deficits, Yue coma scale 15, Memory normal, Cranial Nerves intact to screening exam. Normal [id number]. Slow but steady gait. Negative Romberg. No pronator drift.
SKIN skin warm, dry, and normal in color.
Course
Orders/Labs/Results
Orders:
Orders
05/30/25 13:21
CT Head W/o Iv Contrast Urgent
Comment:
Reason For Exam: fall, head injury, off balance
Vital Signs
Initial and Last Documented VS:
Initial Vital Signs
Temp Pulse Resp BP Pulse Ox
98.3 F 80 19 130/80 98
05/30/25 13:17 05/30/25 13:17 05/30/25 13:17 05/30/25 13:17 05/30/25 13:17
Last Documented Vital Signs
Temp Pulse Resp BP Pulse Ox
98.3 F 80 19 130/80 98
05/30/25 13:17 05/30/25 13:17 05/30/25 13:17 05/30/25 13:17 05/30/25 14:27
MDM/Problems Addressed
Differential Diagnosis Includes:
Subdural hematoma, epidural hematoma, intraparenchymal hemorrhage, cervical strain, migraine, tension headache
MDM/Problems Addressed:
Headache, recent fall
Chronic conditions affecting care: Arrhythmia (Anticoagulated)
*Pulse Oximetry
SaO2: 98
Oxygen Mode of Delivery: Room air
Patient hypoxic: no
*Critical Care Note
Total Time (30-74mins, 75-104mins- exclusive of procedures): Not Applicable
Patient Management
Escalation/DeEscalation of care consider admission/obs:
Patient appears quite well. Here mostly due to concerns about his recent fall and headache. Advised by his doctor to come back for the CT scan of his head. CT negative for hemorrhage. Exam otherwise benign. Ecchymosis to the right flank is
healing. Okay for discharge and outpatient follow-up
ED Attending Note
-
Portions of this chart may have been created with voice recognition software.� Occasional wrong word or��sound alike� substitutions may have occurred due to the inherent limitations of voice recognition software.
Discharge Plan
Departure
Patient Disposition: Home (Routine Discharge)
Date of Disposition: 05/30/25
Time of Disposition: 14:23
Patient with high blood pressure during this ER visit?: No
Discharge Problem:
Fall, Headache, Head injury
Instructions: Head injury in adults, Minor Head Injury (DC)
Prescriptions:
No Action
lorazepam 0.5 MG tablet
0.5 mg PO Q6HPRN PRN (Reason: anxiety, sleep)
ascorbic acid (vitamin C) [Vitamin C] 500 MG tablet
500 mg PO DAILY Qty: 0
Eliquis 5 MG tablet
5 mg PO BID
cholecalciferol (vitamin D3) 1,000 UNITS tablet
1,000 units PO DAILY
simvastatin 20 MG tablet
20 mg PO QPM
albuterol sulfate 1 PUFF HFA aerosol inhaler
2 puff inhalation R Q4HPRN PRN (Reason: sob)
Refresh Optive Advanced (PF) 0.5-1-0.5 % Dropperette
1 drp BOTH EYES 5/D Qty: 0
Centrum Silver Men 300-600-300 mcg Tablet
1 tab PO DAILY
Simbrinza 1-0.2 % Drops,Suspension
1 drp RIGHT EYE BID
furosemide 40 mg tablet
40 mg PO DAILY
methazolamide 50 mg Tablet
50 mg PO BID
amlodipine [Norvasc] 10 mg Tablet
10 mg PO DAILY
Rhopressa 0.02 % Drops
1 drp BOTH EYES QPM
guaifenesin [Mucus Relief ER] 600 mg tablet extended release 12hr
600 mg PO DAILY
polyethylene glycol 3350 17 gram/dose powder
17 g PO DAILY Qty: 510 0RF
Activity Restrictions/Additional Instructions:
Please see your doctor in follow-up in the next 3 to 5 days. Return immediately for worsening symptoms, weakness of any kind, difficulty walking worsening headache, or any other concerns. Please doctor in the next 3 to 5 days for follow-up and
reevaluation.
Interventions
Interventions:
*General Assessment Last Done: 05/30/25 13:20
*Neglect/Abuse Screening Last Done: 05/30/25 13:20
*ED COVID-19 Vaccine History Last Done: 05/30/25 13:20
*ED Influenza Vaccine History Last Done: 05/30/25 13:20
*Risk Screen - Suicide (C-SSRS) Last Done: 05/30/25 13:20
*Nursing Disposition Last Done: 05/30/25 14:45
ED- Neurological Assessment Last Done: 05/30/25 15:09
Discharge Date and Time
Discharge Date/Time: 05/30/25 14:45
Print Language: CHINESE
== END 2025-05-30 14:45 | disposition home or self-care (01) ==
LOC: EMR 12:57
PROVIDERS: EMERGENCY PHYSICIAN Emergency Medicine; FAMILY PHYSICIAN Nurse Practitioner Adult Health
DX: S09.90XA Unspecified injury of head, initial encounter (principal); W19.XXXA Unspecified fall, initial encounter; E78.00 Pure hypercholesterolemia, unspecified; I11.0 Hypertensive heart disease with heart failure; I50.9 Heart failure, unspecified; I48.0 Paroxysmal atrial fibrillation; Z86.73 Personal history of transient ischemic attack (TIA), and cerebral infarction without residual deficits; Z87.891 Personal history of nicotine dependence
CPT/HCPCS: 99284; 70450